=== PATIENT | female | born 1970 | race African-American/Black ===

== ENCOUNTER 2016-04-06 19:16 | Emergency (ER) | payer MEDICAID ==
[~2016-04-06] VITALS: Ht 157.5 cm; Wt 104.3 kg
[2016-04-06 20:48] LABS: Urine Bilirubin Negative (Negative); Urine Blood Negative /uL (Negative); Urine Color Yellow (Yellow); Urine Glucose Normal (Normal); Urine Ketone TRACE (Negative); Urine Mucus FEW (None Seen); Urine Nitrite Negative (Negative); Urine RBC 7 /hpf (0 - 4); Urine Squamous Epithelial Cell MANY /hpf (<5); Urine pH 7.5 (5.0-8.0)
[2016-04-06 20:53] LABS: Basophils # (auto) 0 uL; Basophils % (auto) 0.3 % (0.0-2.0); Eosinophils # (auto) 0.1 uL; Eosinophils % (auto) 0.5 % (0.0-7.0); Hematocrit 42.1 % (36.0-46.0); Lymphocytes # (auto) 2.5 uL; Lymphocytes % (auto) 22.7 % (10.0-50.0); Mean Corpuscular Hemoglobin 30.2 pg (28.0-32.0); Mean Corpuscular Hgb Conc. 33.3 g/dL (32.0-36.0); Mean Corpuscular Volume 90.5 fL (80.0-100.0); Mean Platelet Volume 6.8 fL (7.4-10.4); Monocytes # (auto) 0.5 uL; Monocytes % (auto) 4.9 % (0.0-12.0); Neutrophils # (auto) 7.8 uL; Neutrophils % (auto) 71.6 % (37.0-80.0); Platelet Count (auto) 395 10^3/uL (140-450); White Blood Cell 10.9 10^3/uL (4.4-10.8)
[2016-04-06 21:06] LABS: Albumin 3.9 g/dL (3.4-5.0); BUN/Creatinine Ratio 14.3; Bilirubin, Total 0.3 mg/dL (0.2-1.0); Calcium 9.1 mg/dL (8.5-10.1); Potassium 4.1 mmol/L (3.5-5.1); Total Protein 8.4 g/dL (6.4-8.2)
[2016-04-06] MEDS ORDERED: MORPHINE SULFATE 4 MG/ML SYRG IV ONE (22:45)
[2016-04-06] MEDS ORDERED: ONDANSETRON HCL 4 MG/2 ML VIAL IV ONE (22:45)
[2016-04-06] MEDS ORDERED: cefTRIAXone 1GM/50ML D5W 50 ML IV ONE (22:45)
[2016-04-07 01:24] VITALS: BP 108/97
== END 2016-04-07 01:46 | disposition home or self-care (01) ==
LOC: ER 19:17
DX: L03.116 Cellulitis of left lower limb (principal); J45.909 Unspecified asthma, uncomplicated; F17.210 Nicotine dependence, cigarettes, uncomplicated; F12.10 Cannabis abuse, uncomplicated; E11.69 Type 2 diabetes mellitus with other specified complication; M86.9 Osteomyelitis, unspecified; Z88.1 Allergy status to other antibiotic agents
CPT/HCPCS: 36415; 73700; 80053; 81001; 82962; 84702; 85025; 96365; 96375; 99285; J0696; J2270; J2405

== ENCOUNTER 2016-04-19 22:25 | Emergency (ER) | payer MEDICAID ==
[~2016-04-19] VITALS: Ht 157.5 cm; Wt 99.8 kg
[2016-04-19 22:48] VITALS: BP 155/84
[2016-04-19 23:31] LABS: Basophils # (auto) 0 uL; Basophils % (auto) 0.4 % (0.0-2.0); Eosinophils # (auto) 0.1 uL; Eosinophils % (auto) 2.5 % (0.0-7.0); Hematocrit 35.8 % (36.0-46.0); Lymphocytes # (auto) 1.8 uL; Lymphocytes % (auto) 31.5 % (10.0-50.0); Mean Corpuscular Hgb Conc. 33.7 g/dL (32.0-36.0); Mean Corpuscular Volume 89.2 fL (80.0-100.0); Mean Platelet Volume 6.4 fL (7.4-10.4); Monocytes # (auto) 0.5 uL; Monocytes % (auto) 9.4 % (0.0-12.0); Neutrophils # (auto) 3.2 uL; Neutrophils % (auto) 56.2 % (37.0-80.0); Platelet Count (auto) 466 10^3/uL (140-450); Red Cell Distribution Width 15.9 % (11.6-16.0); White Blood Cell 5.8 10^3/uL (4.4-10.8)
[2016-04-19 23:54] LABS: Albumin 3.7 g/dL (3.4-5.0); BUN/Creatinine Ratio 10.4; Calcium 8.9 mg/dL (8.5-10.1); Potassium 3.5 mmol/L (3.5-5.1)
[2016-04-19 23:57] LABS: Bilirubin, Total 0.3 mg/dL (0.2-1.0); Total Protein 7.6 g/dL (6.4-8.2)
== END 2016-04-20 04:37 | disposition left against medical advice (07) ==
LOC: ER 22:28
DX: L97.519 Non-pressure chronic ulcer of other part of right foot with unspecified severity (principal); Z53.21 Procedure and treatment not carried out due to patient leaving prior to being seen by health care provider
CPT/HCPCS: 36415; 80053; 85025

== ENCOUNTER 2017-05-18 19:11 | Emergency (ER) | payer MEDICAID ==
[~2017-05-18] VITALS: Ht 160 cm; Wt 91.6 kg
[2017-05-18 20:00] LABS: Urine Bacteria MOD /hpf (None Seen); Urine Blood Negative /uL (Negative); Urine Specific Gravity 1.011 (1.001-1.035); Urine WBC 5 /hpf (0 - 5)
[2017-05-19] MEDS: TRIAMCINOLONE 40MG/ML 1ML VIAL IX ONE (05:15)
[2017-05-19 05:30] VITALS: BP 125/82
[2017-05-19] MEDS: LIDOCAINE 1% (LOCAL ANESTH.) PF 5ml SDV IJ ONE (05:45)
== END 2017-05-19 06:00 | disposition home or self-care (01) ==
LOC: ER 19:11
DX: M77.31 Calcaneal spur, right foot (principal); M79.671 Pain in right foot; J45.909 Unspecified asthma, uncomplicated; E11.9 Type 2 diabetes mellitus without complications; F17.210 Nicotine dependence, cigarettes, uncomplicated; E66.9 Obesity, unspecified; Z68.35 Body mass index [BMI] 35.0-35.9, adult; Z88.1 Allergy status to other antibiotic agents; Z88.8 Allergy status to other drugs, medicaments and biological substances
CPT/HCPCS: 73610; 73630; 81001; 81025; 82962

== ENCOUNTER 2017-12-25 12:53 | Emergency (ER) | payer MEDICAID ==
[~2017-12-25] VITALS: Ht 157.5 cm; Wt 90.7 kg
[2017-12-25 14:01] VITALS: BP 137/82
[2017-12-25] MEDS ORDERED: IBUPROFEN 800 MG TAB PO ONE (15:15)
== END 2017-12-25 17:58 | disposition home or self-care (01) ==
LOC: ER 12:53
DX: S50.11XA Contusion of right forearm, initial encounter (principal); S60.211A Contusion of right wrist, initial encounter; F17.210 Nicotine dependence, cigarettes, uncomplicated; F12.90 Cannabis use, unspecified, uncomplicated; Z88.0 Allergy status to penicillin; Z88.2 Allergy status to sulfonamides; Y09 Assault by unspecified means; Y93.89 Activity, other specified; Y99.8 Other external cause status; Y92.810 Car as the place of occurrence of the external cause
CPT/HCPCS: 73090; 73110; 73130

== ENCOUNTER 2019-04-20 21:23 | Inpatient (IN) | payer MEDICARE, MEDICAID ==
[~2019-04-20] VITALS: Ht 160 cm; Wt 107.9 kg
[2019-04-20] MEDS ORDERED: ALBUTEROL SULF 2.5 MG/0.5ML(0.5%) NEB SOLN NEB ONE (21:45)
[2019-04-20] MEDS ORDERED: IPRATROPIUM BROM 0.5 MG/2.5ML INH SOL NEB ONE (21:45)
[2019-04-20 22:09] LABS: Basophils # (auto) 0.1 10 ^3/uL (0-0.2); Basophils % (auto) 0.6 % (0.0-2.0); Eosinophils # (auto) 0.3 10 ^3/uL (0-0.8); Eosinophils % (auto) 2.6 % (0.0-7.0); Hematocrit 39.6 % (36.0-46.0); Hemoglobin 13.5 g/dL (12.2-16.2); Lymphocytes % (auto) 27.7 % (10.0-50.0); Mean Corpuscular Hemoglobin 30.7 pg (28.0-32.0); Mean Corpuscular Hgb Conc. 34.2 g/dL (32.0-36.0); Mean Corpuscular Volume 89.8 fL (80.0-100.0); Monocytes # (auto) 0.5 10 ^3/uL (0-1.3); Neutrophils # (auto) 6.9 10 ^3/uL (1.6-8.6); Neutrophils % (auto) 64.1 % (37.0-80.0); Nucleated Red Blood Cells % 0.1 %; Platelet Count (auto) 385 10^3/uL (140-450); Red Blood Cells 4.41 10^6/uL (4.0-5.20); Red Cell Distribution Width 14.5 % (11.8-14.3); White Blood Cell 10.7 10^3/uL (4.4-10.8)
[2019-04-20 22:30] LABS: Alanine Aminotransferase 22 U/L (13-56); Albumin 3.9 g/dL (3.4-5.0); Anion Gap 4 (5-15); Aspartate Aminotransferase 14 U/L (15-37); BUN/Creatinine Ratio 16.5; Blood Urea Nitrogen 14 mg/dL (7-18); Calcium 8.5 mg/dL (8.5-10.1); Carbon Dioxide 27 mmol/L (21-32); Chloride 107 mmol/L (98-107); GFR African American 92 mL/min; GFR Non-African American 76 mL/min; Glucose 98 mg/dL (74-106); Magnesium 2.1 mg/dL (1.6-2.6); Potassium 3.4 mmol/L (3.5-5.1); Sodium 138 mmol/L (136-145)
[2019-04-20 22:33] LABS: INR 1.06 (0.9-1.15); Partial Thromboplastin Time 29.1 sec (23.64-32.05)
[2019-04-20 22:35] LABS: Alkaline Phosphatase 87 U/L (45-117); Bilirubin, Total 0.2 mg/dL (0.2-1.0); Total Protein 8.1 g/dL (6.4-8.2)
[2019-04-20] MEDS ORDERED: methylPREDNISolone SOD SUCC 125 MG/2 ML VL IM ONE (23:00)
[2019-04-21] MEDS ORDERED: IPRATROPIUM BROM 0.5 MG/2.5ML INH SOL NEB ONE (03:30)
[2019-04-21] MEDS ORDERED: ALBUTEROL SULF 2.5 MG/0.5ML(0.5%) NEB SOLN NEB ONE (03:30)
[2019-04-21] MEDS ORDERED: MORPHINE SULFATE 4 MG/ML SYR/VIAL IV ONE (08:30)
[2019-04-21] MEDS ORDERED: ONDANSETRON HCL 4 MG/2 ML VIAL IV ONE (08:30)
[2019-04-21] MEDS ORDERED: NITROGLYCERIN 0.4 MG SL TAB SL PRN (09:15)
[2019-04-21] MEDS ORDERED: ACETAMINOPHEN 500 MG TAB PO PRN (09:15)
[2019-04-21] MEDS ORDERED: MORPHINE SULF INJ 2 MG/ML SYRINGE 1ML IV PRN (09:15)
[2019-04-21] MEDS ORDERED: DEXTROSE (50%) 50ML SYRG IV PRN (09:15)
[2019-04-21] MEDS ORDERED: HYDROcodone-ACET 5/325MG TAB PO PRN (09:15)
[2019-04-21] MEDS ORDERED: POTASSIUM EFFERVESENT TAB 25 MEQ PO ONE (09:30)
[2019-04-21] MEDS ORDERED: methylPREDNISolone SOD SUCC 40 MG/ML VL IV SCH (10:00)
[2019-04-21] MEDS: methylPREDNISolone SOD SUCC 40 MG/ML VL IV SCH ×2 (10:01→21:40)
[2019-04-21] MEDS: FAMOTIDINE 20 MG TAB PO SCH (10:01)
[2019-04-21 11:06] VITALS: BP 109/52
[2019-04-21] MEDS ORDERED: ONDA-144 PO (11:18)
[2019-04-21] MEDS ORDERED: INSLANTI SC (11:18)
[2019-04-21] MEDS ORDERED: TIZA4CAP13 PO (11:18)
[2019-04-21] MEDS ORDERED: SENN8.6C PO (11:18)
[2019-04-21] MEDS ORDERED: ALBUAER3 IN (11:18)
[2019-04-21] MEDS ORDERED: FURO1TAB33 PO (11:18)
[2019-04-21] MEDS ORDERED: PERCOT PO (11:18)
[2019-04-21] MEDS: ACCU-CHEK COMFORT CURVE STRIP VI SCH ×3 (11:25→21:40)
[2019-04-21] MEDS: InsuLIN REG 1unit/0.01ml Soln (100units/ml) SC SCH ×3 (11:31→21:40)
[2019-04-21] MEDS: IPRATROPIUM BROM 0.5 MG/2.5ML INH SOL NEB SCH ×2 (12:29→18:59)
[2019-04-21] MEDS: BUDESONIDE (INHALATION) 0.5 MG/2 ML NEB NEB SCH ×2 (12:29→18:59)
[2019-04-21] MEDS: ALBUTEROL SULF 2.5 MG/0.5ML(0.5%) NEB SOLN NEB SCH ×2 (12:30→18:59)
[2019-04-21 13:00] VITALS: BP 120/83
[2019-04-21] MEDS: ONDANSETRON HCL 4 MG/2 ML VIAL IV PRN ×2 (16:14→21:42)
[2019-04-21] MEDS: MORPHINE SULF INJ 2 MG/ML SYRINGE 1ML IV PRN ×2 (16:14→21:42)
[2019-04-21 16:49] VITALS: BP 125/73
[2019-04-21 22:35] VITALS: BP 111/57
[2019-04-22 02:57] VITALS: BP 111/57
[2019-04-22] MEDS: ONDANSETRON HCL 4 MG/2 ML VIAL IV PRN ×3 (05:28→18:15)
[2019-04-22] MEDS: MORPHINE SULF INJ 2 MG/ML SYRINGE 1ML IV PRN ×3 (05:28→18:15)
[2019-04-22 05:39] VITALS: BP 101/70
[2019-04-22] MEDS: ALBUTEROL SULF 2.5 MG/0.5ML(0.5%) NEB SOLN NEB SCH ×3 (05:54→18:12)
[2019-04-22] MEDS: IPRATROPIUM BROM 0.5 MG/2.5ML INH SOL NEB SCH ×3 (05:54→18:12)
[2019-04-22] MEDS: BUDESONIDE (INHALATION) 0.5 MG/2 ML NEB NEB SCH ×2 (05:54→18:12)
[2019-04-22] MEDS: ACCU-CHEK COMFORT CURVE STRIP VI SCH ×4 (06:43→21:34)
[2019-04-22] MEDS: InsuLIN REG 1unit/0.01ml Soln (100units/ml) SC SCH ×4 (06:44→21:35)
[2019-04-22 09:00] VITALS: BP 113/76
[2019-04-22] MEDS: methylPREDNISolone SOD SUCC 40 MG/ML VL IV SCH ×2 (09:32→21:34)
[2019-04-22] MEDS: FAMOTIDINE 20 MG TAB PO SCH (09:32)
[2019-04-22 13:00] VITALS: BP 116/70
[2019-04-22] MEDS ORDERED: levoFLOXacin 250 MG TAB PO ONE (13:30)
[2019-04-22 17:00] VITALS: BP 142/67
[2019-04-22 21:52] VITALS: BP 112/70
[2019-04-22] MEDS ORDERED: SENNA 8.6 MG TAB PO SCH (22:00)
[2019-04-23] MEDS: MORPHINE SULF INJ 2 MG/ML SYRINGE 1ML IV PRN ×2 (01:17→09:35)
[2019-04-23] MEDS: ONDANSETRON HCL 4 MG/2 ML VIAL IV PRN ×2 (01:17→09:35)
[2019-04-23 02:00] VITALS: BP 120/59
[2019-04-23 04:32] VITALS: BP 121/74
[2019-04-23] MEDS: ACCU-CHEK COMFORT CURVE STRIP VI SCH (06:38)
[2019-04-23] MEDS: InsuLIN REG 1unit/0.01ml Soln (100units/ml) SC SCH (06:38)
[2019-04-23 08:57] VITALS: BP 121/74
[2019-04-23 09:00] VITALS: BP 148/72
[2019-04-23] MEDS: methylPREDNISolone SOD SUCC 40 MG/ML VL IV SCH (09:27)
[2019-04-23] MEDS: FAMOTIDINE 20 MG TAB PO SCH (09:28)
[2019-04-23] MEDS ORDERED: levoFLOXacin 250 MG TAB PO SCH (10:00)
== END 2019-04-23 10:10 | disposition home or self-care (01) | DRG 189 ==
LOC: ER 21:27 → OVERFLOW 21:28 → CENTRAL 04-21 10:37
PROVIDERS: ADMIT Nurse Practitioner Acute Care; ATTEND Family Medicine
DX: J96.20 Acute and chronic respiratory failure, unspecified whether with hypoxia or hypercapnia (principal); J44.1 Chronic obstructive pulmonary disease with (acute) exacerbation; J45.902 Unspecified asthma with status asthmaticus; Z68.41 Body mass index [BMI] 40.0-44.9, adult; J44.0 Chronic obstructive pulmonary disease with (acute) lower respiratory infection; J20.9 Acute bronchitis, unspecified; G89.29 Other chronic pain; E11.9 Type 2 diabetes mellitus without complications; E66.01 Morbid (severe) obesity due to excess calories; F17.210 Nicotine dependence, cigarettes, uncomplicated; Z79.4 Long term (current) use of insulin; Z99.81 Dependence on supplemental oxygen; Z88.2 Allergy status to sulfonamides
CPT/HCPCS: 36415; 71046; 71250; 80053; 82962; 83036; 83735; 83880; 84484; 85025; 85610; 85730; 87804; 93005; 94640; 96372; 96374; 96375; G0378; J1815; J2405

== ENCOUNTER 2019-05-07 22:33 | Emergency (ER) | payer MEDICARE, MEDICAID ==
[~2019-05-07] VITALS: Ht 160 cm; Wt 95.3 kg
[~2019-05-07 22:33] MED LIST: ALBUAER3 IN; FURO1TAB33 PO; INSLANTI SC; ONDA-144 PO; PERCOT PO; SENN8.6C PO; TIZA4CAP13 PO
[2019-05-07 22:49] VITALS: BP 95/65
[2019-05-08] MEDS ORDERED: HYDROcodone-ACET 5/325MG TAB PO ONE (01:50)
== END 2019-05-08 02:28 | disposition home or self-care (01) ==
LOC: ER 22:34
DX: S52.202A Unspecified fracture of shaft of left ulna, initial encounter for closed fracture (principal); J45.909 Unspecified asthma, uncomplicated; E11.9 Type 2 diabetes mellitus without complications; Z88.1 Allergy status to other antibiotic agents; X58.XXXA Exposure to other specified factors, initial encounter; Y93.89 Activity, other specified; Y92.89 Other specified places as the place of occurrence of the external cause; Y99.8 Other external cause status
CPT/HCPCS: 73090

== ENCOUNTER 2019-05-09 10:43 | Emergency (ER) | payer MEDICARE, MEDICAID ==
[~2019-05-09] VITALS: Ht 160 cm; Wt 99.8 kg
[2019-05-09 10:59] VITALS: BP 147/81
== END 2019-05-09 12:08 | disposition home or self-care (01) ==
LOC: ER 10:43
DX: S52.202D Unspecified fracture of shaft of left ulna, subsequent encounter for closed fracture with routine healing (principal); E11.9 Type 2 diabetes mellitus without complications; J45.909 Unspecified asthma, uncomplicated; Z88.1 Allergy status to other antibiotic agents; X58.XXXD Exposure to other specified factors, subsequent encounter

== ENCOUNTER 2019-05-14 11:48 | Emergency (ER) | payer MEDICARE, MEDICAID ==
[~2019-05-14] VITALS: Ht 160 cm; Wt 95.3 kg
[2019-05-14] MEDS ORDERED: KETOROLAC TROMETH 30 MG/ML 1ML VIAL ONE (12:38)
[2019-05-14] MEDS ORDERED: KETOROLAC TROMETH 15 mg/ml 1ML VL IV ONE (12:45)
[2019-05-14] MEDS ORDERED: ONDANSETRON HCL 4 MG/2 ML VIAL IV ONE (12:45)
[2019-05-14 12:55] LABS: Basophils # (auto) 0 10 ^3/uL (0-0.2); Basophils % (auto) 0.4 % (0.0-2.0); Eosinophils # (auto) 0.3 10 ^3/uL (0-0.8); Eosinophils % (auto) 3.6 % (0.0-7.0); Hematocrit 35.2 % (36.0-46.0); Lymphocytes # (auto) 2.2 10 ^3/uL (0.4-5.4); Lymphocytes % (auto) 31.2 % (10.0-50.0); Mean Corpuscular Hemoglobin 30.8 pg (28.0-32.0); Mean Corpuscular Hgb Conc. 34.1 g/dL (32.0-36.0); Mean Corpuscular Volume 90.3 fL (80.0-100.0); Monocytes # (auto) 0.4 10 ^3/uL (0-1.3); Monocytes % (auto) 5.4 % (0.0-12.0); Neutrophils # (auto) 4.2 10 ^3/uL (1.6-8.6); Neutrophils % (auto) 59.4 % (37.0-80.0); Nucleated Red Blood Cells % 0.2 %; Platelet Count (auto) 381 10^3/uL (140-450); Red Cell Distribution Width 14.7 % (11.8-14.3); White Blood Cell 7.1 10^3/uL (4.4-10.8)
[2019-05-14 13:10] LABS: Potassium 3.7 mmol/L (3.5-5.1)
[2019-05-14] MEDS ORDERED: PANTOPRAZOLE 40 MG/10 ML VIAL INJ IV ONE (13:15)
[2019-05-14 13:16] LABS: Albumin 3.1 g/dL (3.4-5.0); BUN/Creatinine Ratio 14.1; Bilirubin, Total 0.3 mg/dL (0.2-1.0); Calcium 8.4 mg/dL (8.5-10.1); Total Protein 6.9 g/dL (6.4-8.2)
[2019-05-14 13:44] VITALS: BP 130/86
== END 2019-05-14 13:49 | disposition home or self-care (01) ==
LOC: ER 11:48
DX: K44.9 Diaphragmatic hernia without obstruction or gangrene (principal); R10.13 Epigastric pain; R11.2 Nausea with vomiting, unspecified; K59.00 Constipation, unspecified; E44.1 Mild protein-calorie malnutrition; J45.909 Unspecified asthma, uncomplicated; E11.9 Type 2 diabetes mellitus without complications
CPT/HCPCS: 36415; 74176; 80053; 83690; 85025; 96374; 96375; 99284; C9113; J1885; J2405

== ENCOUNTER 2019-07-28 16:52 | Inpatient (IN) | payer MEDICARE, MEDICAID ==
[~2019-07-28] VITALS: Ht 160 cm; Wt 106.0 kg
[2019-07-28 17:56] LABS: Basophils # (auto) 0.1 10 ^3/uL (0-0.2); Basophils % (auto) 0.6 % (0.0-2.0); Eosinophils # (auto) 0.3 10 ^3/uL (0-0.8); Eosinophils % (auto) 2.5 % (0.0-7.0); Hematocrit 39.4 % (36.0-46.0); Hemoglobin 13.2 g/dL (12.2-16.2); Lymphocytes # (auto) 2.7 10 ^3/uL (0.4-5.4); Lymphocytes % (auto) 25.6 % (10.0-50.0); Mean Corpuscular Hemoglobin 30.2 pg (28.0-32.0); Mean Corpuscular Hgb Conc. 33.6 g/dL (32.0-36.0); Mean Corpuscular Volume 89.9 fL (80.0-100.0); Monocytes # (auto) 0.4 10 ^3/uL (0-1.3); Monocytes % (auto) 3.8 % (0.0-12.0); Neutrophils % (auto) 67.5 % (37.0-80.0); Nucleated Red Blood Cells % 0.2 %; Platelet Count (auto) 393 10^3/uL (140-450); Red Blood Cells 4.39 10^6/uL (4.0-5.20); Red Cell Distribution Width 14.2 % (11.8-14.3); White Blood Cell 10.4 10^3/uL (4.4-10.8)
[2019-07-28 18:10] LABS: INR 1.13 (0.9-1.15); Partial Thromboplastin Time 29.9 sec (23.64-32.05)
[2019-07-28 18:13] LABS: Albumin 3.7 g/dL (3.4-5.0); BUN/Creatinine Ratio 13.5; Calcium 8.4 mg/dL (8.5-10.1); Potassium 3.6 mmol/L (3.5-5.1)
[2019-07-28 18:19] LABS: Bilirubin, Total 0.3 mg/dL (0.2-1.0); Total Protein 7.8 g/dL (6.4-8.2)
[2019-07-28] MEDS ORDERED: ONDANSETRON HCL 4 MG/2 ML VIAL IV PRN (21:15)
[2019-07-28] MEDS ORDERED: PANTOPRAZOLE 40 MG/10 ML VIAL INJ IV ONE (21:15)
[2019-07-28] MEDS ORDERED: ACETAMINOPHEN 325 MG TAB PO PRN (21:15)
[2019-07-28] MEDS: SODIUM CHLORIDE 0.9% 1,000 ML IV SCH (21:49)
[2019-07-28] MEDS ORDERED: TEMAZEPAM 15 MG CAP PO PRN (22:00)
[2019-07-28 22:40] VITALS: BP 141/86
[2019-07-28] MEDS ORDERED: POLYETHYLENE GLYCOL 17 GM PWDR PO ONE (23:00)
--- NOTE | 2019-07-28 23:30 | NUR ---
Patient asking for a breathing treatment RT paged to unit
[2019-07-28] MEDS: ALBUTEROL SULF 2.5 MG/0.5ML(0.5%) NEB SOLN NEB PRN (23:33)
[2019-07-29] VITALS (7 sets, daily range): BP systolic 101–141; BP diastolic 68–86
--- NOTE | 2019-07-29 | NUR ---
MS admit from ER DAY,HUSSEIN admitted to [facility]. Patient oriented to ALFONSO OLIVER RN, room 206. Patient weighed by bedscale and encouraged to call if they need something. All questions and concerns addressed, patient verbalized understanding. Bed locked, in lowest position, call light within reach, side rails up x2. Will continue to monitor
[2019-07-29] MEDS: HYDROcodone-ACET 5/325MG TAB PO PRN ×2 (01:55→09:43)
[2019-07-29] MEDS ORDERED: SODIUM CHLORIDE 0.9 % NEB SOLN 3ML NEB ONE ×2 (05:56→10:40)
--- NOTE | 2019-07-29 07:38 | NUR ---
Assumed care of patient from noc shift rn. patient awake, alert and oriented x4. Denies SOB, no s/s distress, pain denied at this time. Plan of care discussed. Bed in lowest and locked position. Encouraged to call for assistance prn.Will continue to monitor q1 and prn.
[2019-07-29] MEDS: FUROSEMIDE 40 MG TAB PO SCH (09:46)
[2019-07-29 09:48] LABS: Basophils # (auto) 0 10 ^3/uL (0-0.2); Basophils % (auto) 0.3 % (0.0-2.0); Eosinophils # (auto) 0.2 10 ^3/uL (0-0.8); Eosinophils % (auto) 2.9 % (0.0-7.0); Hematocrit 39.4 % (36.0-46.0); Hemoglobin 12.9 g/dL (12.2-16.2); Lymphocytes # (auto) 2.2 10 ^3/uL (0.4-5.4); Lymphocytes % (auto) 30.6 % (10.0-50.0); Mean Corpuscular Hemoglobin 29.7 pg (28.0-32.0); Mean Corpuscular Hgb Conc. 32.7 g/dL (32.0-36.0); Mean Corpuscular Volume 90.9 fL (80.0-100.0); Monocytes # (auto) 0.4 10 ^3/uL (0-1.3); Monocytes % (auto) 5.1 % (0.0-12.0); Neutrophils # (auto) 4.4 10 ^3/uL (1.6-8.6); Neutrophils % (auto) 61.1 % (37.0-80.0); Nucleated Red Blood Cells % 0.1 %; Platelet Count (auto) 380 10^3/uL (140-450); Red Blood Cells 4.34 10^6/uL (4.0-5.20); Red Cell Distribution Width 14.6 % (11.8-14.3); White Blood Cell 7.2 10^3/uL (4.4-10.8)
[2019-07-29] MEDS ORDERED: PANTOPRAZOLE 40 MG/10 ML VIAL INJ IV SCH (10:00)
[2019-07-29] MEDS: SODIUM CHLORIDE 0.9% 1,000 ML IV SCH (10:35)
[2019-07-29] MEDS: ALBUTEROL SULF 2.5 MG/0.5ML(0.5%) NEB SOLN NEB PRN ×3 (12:00→23:34)
[2019-07-29] MEDS ORDERED: LIDOCAINE VISCOUS 2% 15ML UD ONE (12:16)
[2019-07-29] MEDS ORDERED: SODIUM CHLORIDE LOCK 10 ML ONE (12:16)
[2019-07-29] MEDS: diphenhdrAMINE HCL 50 MG/1 ML VL ONE ×2 (15:08→15:12)
[2019-07-29] MEDS: fentaNYL CITRATE 100 MCG/2 ML VL ONE ×2 (15:08→15:10)
[2019-07-29] MEDS: MIDAZOLAM HCL 5 MG/ML-1ML VIAL ONE ×3 (15:08→15:13)
--- NOTE | 2019-07-29 16:09 | NUR ---
ss consult Per consult advanced directive. Patient has been provided with advanced directive by ELIO Colbert. Addendum: 07/29/19 at 1610 by Deysi GARCIA Amended: Links added.
[2019-07-29] MEDS ORDERED: INSU1INJ19 SC (16:50)
[2019-07-29] MEDS ORDERED: FURO40TA4 PO (16:50)
[2019-07-29] MEDS ORDERED: ONDA-180 PO (16:51)
[2019-07-29] MEDS ORDERED: PANT40TA2 PO (16:53)
[2019-07-29] MEDS ORDERED: AMIT10TA6 PO (16:53)
[2019-07-29] MEDS ORDERED: MELO1TAB56 PO (16:53)
[2019-07-29] MEDS ORDERED: IPRA0.00 NEB (16:53)
[2019-07-29] MEDS ORDERED: POTA10TA79 PO (16:53)
[2019-07-29] MEDS ORDERED: HYDR4TAB2 PO (16:53)
[2019-07-29] MEDS ORDERED: DEXTROSE (50%) 50ML SYRG IV PRN (17:45)
--- NOTE | 2019-07-29 20:00 | NUR ---
Opening Shift Note Assumed care of patient. Awake, alert and oriented x4. No S/S of distress or pain. Patient is resting comfortably with nasal cannula on at 2L. Instructed on POC and to call for assist PRN. Call light within reach, bed locked, in lowest position, side rails up x2. Will continue to monitor for changes Q1hr and PRN.
[2019-07-29] MEDS: InsuLIN REG 1unit/0.01ml Soln (100units/ml) SC SCH (22:00)
--- NOTE | 2019-07-29 23:20 | NUR ---
Pt requesting breathing treatment Paged RT
[2019-07-29] MEDS: ACCU-CHEK COMFORT CURVE STRIP VI SCH (23:33)
--- NOTE | 2019-07-30 | NUR ---
Paged Hospitalist Patient saying the breathing treatments she's getting aren't what she takes at home and she isn't getting sufficient relief. Awaiting for a reply.
--- NOTE | 2019-07-30 00:46 | NUR ---
Received call from Hospitalist New orders received. Will continue with care
[2019-07-30] MEDS: SODIUM CHLORIDE 0.9% 1,000 ML IV SCH ×2 (04:29→13:57)
[2019-07-30 05:56] VITALS: BP 114/68
[2019-07-30] MEDS: ALBUTEROL SULF 2.5 MG/0.5ML(0.5%) NEB SOLN NEB PRN ×2 (06:23→22:59)
[2019-07-30] MEDS: IPRATROPIUM BROM 0.5 MG/2.5ML INH SOL NEB PRN ×2 (06:23→22:59)
[2019-07-30] MEDS: ACCU-CHEK COMFORT CURVE STRIP VI SCH ×4 (06:34→22:05)
[2019-07-30] MEDS: InsuLIN REG 1unit/0.01ml Soln (100units/ml) SC SCH ×4 (06:35→22:00)
[2019-07-30 09:00] VITALS: BP 123/67
--- NOTE | 2019-07-30 09:15 | NUR ---
OPENING SHIFT NOTE: PATIENT RESTING IN BED, A/OX4. MD Tenzin FIORE AT BEDSIDE. UPDATED ON PLAN OF CARE. PATIENT TOLERATING CLEAR LIQUID DIET. PLAN FOR BOWEL PREP TODAY, ADDRESSED CONCERNS. PATIENT GIVEN CALL LIGHT AND FALL PRECAUTIONS IN PLACE. WILL CONTINUE TO MONITOR.
[2019-07-30] MEDS ORDERED: GOLYTELY 4L KIT PO ONE (10:00)
[2019-07-30] MEDS: PANTOPRAZOLE 40 MG/10 ML VIAL INJ IV SCH ×3 (10:51→21:57)
[2019-07-30] MEDS: FUROSEMIDE 40 MG TAB PO SCH (10:51)
[2019-07-30] MEDS: SUCRALFATE 1 GM TAB PO SCH ×3 (10:52→21:57)
--- NOTE | 2019-07-30 11:24 | NUR ---
BOWEL PREP: PATIENT ON CLEAR LIQUID, GOLYTELY INSTRUCTIONS GIVEN. COMMODE AT BEDSIDE. WILL CONTINUE TO MONITOR.
[2019-07-30] MEDS ORDERED: KETOROLAC TROMETH 30 MG/ML 1ML VIAL IV PRN (11:30)
[2019-07-30 12:30] VITALS: BP 133/86
[2019-07-30] MEDS ORDERED: HYDROcodone-ACET 5/325MG TAB PO PRN (13:15)
[2019-07-30 17:00] VITALS: BP 131/85
--- NOTE | 2019-07-30 17:39 | NUR ---
PT ASSESSED FOR PRN MED NEB TX. SPO2 97% ON 3L NC, HR 93. PT DENIES ANY RESPIRATORY DISTRESS AT THIS TIME. NO TX INDICATED. PT IS AWARE TO HAVE RT PAGED IF TX NEEDED.
[2019-07-30 18:47] LABS: Calcium 8.3 mg/dL (8.5-10.1); Potassium 3.6 mmol/L (3.5-5.1)
--- NOTE | 2019-07-30 19:00 | NUR ---
CARE ENDORSED TO CAN BALLARD.
[2019-07-30 22:00] VITALS: BP 134/89
[2019-07-31] MEDS: SODIUM CHLORIDE 0.9% 1,000 ML IV SCH ×2 (02:35→16:50)
[2019-07-31] MEDS: IPRATROPIUM BROM 0.5 MG/2.5ML INH SOL NEB PRN ×3 (05:59→13:45)
[2019-07-31] MEDS: ALBUTEROL SULF 2.5 MG/0.5ML(0.5%) NEB SOLN NEB PRN (05:59)
[2019-07-31] MEDS: InsuLIN REG 1unit/0.01ml Soln (100units/ml) SC SCH ×3 (07:00→17:00)
[2019-07-31] MEDS: ACCU-CHEK COMFORT CURVE STRIP VI SCH ×3 (07:11→17:00)
[2019-07-31 07:19] LABS: Urine Bacteria NONE SEEN /hpf (None Seen); Urine Blood 3+ /uL (Negative); Urine Mucus FEW (None Seen); Urine Specific Gravity 1.016 (1.001-1.035)
[2019-07-31 07:24] LABS: Urine WBC 1 /hpf (0 - 5)
--- NOTE | 2019-07-31 07:30 | NUR ---
End of Shift Note Care endorsed to dayshift nurse. At this time patient has no s/s of distress or SOB, no complaints, responsive to voice and touch.
[2019-07-31] MEDS: SUCRALFATE 1 GM TAB PO SCH ×3 (07:37→17:00)
[2019-07-31 08:57] VITALS: BP 105/49
[2019-07-31] MEDS ORDERED: GOLYTELY 4L KIT PO ONE (09:00)
[2019-07-31] MEDS: FUROSEMIDE 40 MG TAB PO SCH (09:00)
--- NOTE | 2019-07-31 09:01 | NUR ---
OPENING SHIFT NOTE: PATIENT RESTING IN BED, A/OX4. UPDATED ON PLAN OF CARE. PATIENT TOLERATING CLEAR LIQUID DIET. PATIENT GIVEN CALL LIGHT AND FALL PRECAUTIONS IN PLACE. WILL CONTINUE TO MONITOR.
[2019-07-31 09:10] LABS: Basophils # (auto) 0 10 ^3/uL (0-0.2); Basophils % (auto) 0.6 % (0.0-2.0); Eosinophils # (auto) 0.2 10 ^3/uL (0-0.8); Eosinophils % (auto) 2.7 % (0.0-7.0); Hematocrit 36.3 % (36.0-46.0); Hemoglobin 12.3 g/dL (12.2-16.2); Lymphocytes % (auto) 30.7 % (10.0-50.0); Mean Corpuscular Hemoglobin 30.4 pg (28.0-32.0); Mean Corpuscular Hgb Conc. 33.8 g/dL (32.0-36.0); Mean Corpuscular Volume 89.9 fL (80.0-100.0); Monocytes # (auto) 0.3 10 ^3/uL (0-1.3); Monocytes % (auto) 5.2 % (0.0-12.0); Neutrophils # (auto) 3.9 10 ^3/uL (1.6-8.6); Neutrophils % (auto) 60.8 % (37.0-80.0); Nucleated Red Blood Cells % 0.1 %; Platelet Count (auto) 371 10^3/uL (140-450); Red Blood Cells 4.04 10^6/uL (4.0-5.20); Red Cell Distribution Width 14.3 % (11.8-14.3); White Blood Cell 6.5 10^3/uL (4.4-10.8)
[2019-07-31 09:26] LABS: INR 1.15 (0.9-1.15); Partial Thromboplastin Time 28.6 sec (23.64-32.05)
[2019-07-31 09:30] LABS: BUN/Creatinine Ratio 7.5; Calcium 7.6 mg/dL (8.5-10.1); Potassium 3.6 mmol/L (3.5-5.1)
[2019-07-31] MEDS: ALBUTEROL SULF 2.5 MG/0.5ML(0.5%) NEB SOLN NEB SCH ×2 (09:55→13:45)
--- NOTE | 2019-07-31 10:28 | NUR ---
IV: IV TO LEFT HAND DISCONTINUED. NEW IV IN THE RIGHT HAND 22G.
[2019-07-31] MEDS: PANTOPRAZOLE 40 MG/10 ML VIAL INJ IV SCH (10:29)
[2019-07-31] MEDS ORDERED: SODIUM CHLORIDE LOCK 10 ML ONE (10:30)
--- NOTE | 2019-07-31 11:13 | NUR ---
PATIENT TAKEN DOWN TO PRE-OP.
[2019-07-31] MEDS: diphenhdrAMINE HCL 50 MG/1 ML VL ONE ×2 (12:27→12:32)
[2019-07-31] MEDS: MIDAZOLAM HCL 5 MG/ML-1ML VIAL ONE ×3 (12:27→12:32)
[2019-07-31] MEDS: fentaNYL CITRATE 100 MCG/2 ML VL ONE ×2 (12:27→12:30)
--- NOTE | 2019-07-31 13:13 | NUR ---
Nutrition Assessment Notes Please refer to link for full assessment notes. Est Energy needs: 8971-1320 kcals (12-15 kcal/kgBW) Est Protein needs: 105-131 gms/day (2.0-2.5 gm/kgIBW) d/t pt adiposity Will continue to monitor and reassess prn. Addendum: 07/31/19 at [address] Amended: Links added.
[2019-07-31 13:30] VITALS: BP 122/72
--- NOTE | 2019-07-31 13:30 | NUR ---
PATIENT BACK IN ROOM. ABLE TO EAT AND DRINK. VS OBTAINED WNL.
[2019-07-31 13:57] VITALS: BP 137/89
--- NOTE | 2019-07-31 15:52 | NUR ---
DC UPDATE: PATIENT A/OX4, VERY SLEEPY. RESPIRATIONS EVEN AND UNLABORED, PATIENT DROVE SELF TO ER ON ADMISSION, AND IS TO GO HOME BY DRIVING SELF. WILL RE-ASSESS PATIENT BEHAVIOR AFTER DINNER FOR VERIFICATION FOR SAFE DISCHARGE.
[2019-07-31 16:36] VITALS: BP 119/72
--- NOTE | 2019-07-31 16:53 | NUR ---
MARTHA KNIGHT TO WASTE HANDLING TECHNICIAN PATIENT.
--- NOTE | 2019-07-31 17:52 | NUR ---
DISCHARGE: PATIENT DISCHARGED. ALL EDUCATION MATERIALS GIVEN TO PATIENT. PATIENT VERBALIZED UNDERSTANDING. IV REMOVED, MANUAL PRESSURE APPLIED. PATIENT TAKEN DOWN TO PRIVATE AUTO WITH ALL BELONGINGS. PATIENT AMBULATED INTO AUTO WITHOUT INCIDENCE.
== END 2019-07-31 18:00 | disposition home or self-care (01) | DRG 381 ==
LOC: ER 16:52 → OVERFLOW 16:53 → CENTRAL 22:40
PROVIDERS: ADMIT Nurse Practitioner; ATTEND Family Medicine
PROC: 0DB88ZX Excision of Small Intestine, Via Natural or Artificial Opening Endoscopic, Diagnostic (ICD-10-PCS; 2019-07-29)
PROC: 0DB68ZX Excision of Stomach, Via Natural or Artificial Opening Endoscopic, Diagnostic (ICD-10-PCS; 2019-07-29)
PROC: 0DB38ZX Excision of Lower Esophagus, Via Natural or Artificial Opening Endoscopic, Diagnostic (ICD-10-PCS; principal; 2019-07-29 15:00)
PROC: 0DBF8ZX Excision of Right Large Intestine, Via Natural or Artificial Opening Endoscopic, Diagnostic (ICD-10-PCS; 2019-07-31)
PROC: 0DBN8ZX Excision of Sigmoid Colon, Via Natural or Artificial Opening Endoscopic, Diagnostic (ICD-10-PCS; 2019-07-31)
DX: K22.11 Ulcer of esophagus with bleeding (principal); J44.1 Chronic obstructive pulmonary disease with (acute) exacerbation; Z68.41 Body mass index [BMI] 40.0-44.9, adult; K29.01 Acute gastritis with bleeding; E66.01 Morbid (severe) obesity due to excess calories; I10 Essential (primary) hypertension; K44.9 Diaphragmatic hernia without obstruction or gangrene; K64.8 Other hemorrhoids; F41.9 Anxiety disorder, unspecified; G89.29 Other chronic pain; M54.9 Dorsalgia, unspecified; K62.1 Rectal polyp; K63.89 Other specified diseases of intestine; E11.9 Type 2 diabetes mellitus without complications; K59.09 Other constipation; Z82.49 Family history of ischemic heart disease and other diseases of the circulatory system; Z87.11 Personal history of peptic ulcer disease; Z83.3 Family history of diabetes mellitus; Z87.19 Personal history of other diseases of the digestive system; Z88.1 Allergy status to other antibiotic agents
CPT/HCPCS: 36415; 43239; 45384; 71045; 74176; 80048; 80053; 81001; 82962; 83036; 84702; 85025; 85610; 85730; 86850; 86900; 86901; 94640; 96374; C9113; G0378; J2250; J2405

== ENCOUNTER 2020-06-21 11:04 | Emergency (ER) | payer MEDICARE, MEDICAID ==
[~2020-06-21] VITALS: Ht 160 cm; Wt 99.8 kg
[~2020-06-21 11:04] MED LIST changes: +AMIT10TA6 PO; -FURO1TAB33 PO; +FURO40TA4 PO; +HYDR4TAB2 PO; -INSLANTI SC; +INSU1INJ19 SC; +IPRA0.00 NEB; +MELO1TAB56 PO; -ONDA-144 PO; +ONDA-180 PO; +PANT40TA2 PO; -PERCOT PO; +POTA10TA32 PO
[2020-06-21 13:10] VITALS: BP 123/80
[2020-06-21] MEDS ORDERED: KETOROLAC TROMETH 60MG/2ML VIAL IM ONE (13:45)
[2020-06-21] MEDS ORDERED: HYDROcodone-ACET 5/325MG TAB PO ONE (13:45)
== END 2020-06-21 14:00 | disposition home or self-care (01) ==
LOC: ER 11:04
DX: G89.29 Other chronic pain (principal); R10.2 Pelvic and perineal pain; N39.0 Urinary tract infection, site not specified; J44.9 Chronic obstructive pulmonary disease, unspecified; E11.9 Type 2 diabetes mellitus without complications; Z86.2 Personal history of diseases of the blood and blood-forming organs and certain disorders involving the immune mechanism; Z79.4 Long term (current) use of insulin; Z79.899 Other long term (current) drug therapy; Z88.1 Allergy status to other antibiotic agents; Z88.2 Allergy status to sulfonamides
CPT/HCPCS: 81002; 81025; 96372; 99283; J1885

== ENCOUNTER 2020-07-08 10:45 | Emergency (ER) | payer MEDICARE, MEDICAID ==
[~2020-07-08] VITALS: Ht 160 cm; Wt 99.8 kg
[~2020-07-08 10:45] MED LIST changes: -AMIT10TA6 PO; +AMIT1TAB34 PO
[2020-07-08 11:20] LABS: Basophils # (auto) 0.1 10 ^3/uL (0-0.2); Basophils % (auto) 0.9 % (0.0-2.0); Eosinophils # (auto) 0.1 10 ^3/uL (0-0.8); Hematocrit 41.5 % (36.0-46.0); Hemoglobin 13.7 g/dL (12.2-16.2); Lymphocytes # (auto) 2.7 10 ^3/uL (0.4-5.4); Lymphocytes % (auto) 30.9 % (10.0-50.0); Mean Corpuscular Hemoglobin 29.4 pg (28.0-32.0); Mean Corpuscular Hgb Conc. 33.1 g/dL (32.0-36.0); Mean Corpuscular Volume 88.7 fL (80.0-100.0); Monocytes # (auto) 0.4 10 ^3/uL (0-1.3); Monocytes % (auto) 4.4 % (0.0-12.0); Neutrophils # (auto) 5.4 10 ^3/uL (1.6-8.6); Neutrophils % (auto) 62.8 % (37.0-80.0); Nucleated Red Blood Cells % 0.2 %; Red Blood Cells 4.68 10^6/uL (4.0-5.20); Red Cell Distribution Width 15.1 % (11.8-14.3); White Blood Cell 8.7 10^3/uL (4.4-10.8)
[2020-07-08 11:30] LABS: Chloride 106 mmol/L (98-107); Potassium 3.9 mmol/L (3.5-5.1); Sodium 138 mmol/L (136-145)
[2020-07-08 11:39] LABS: Anion Gap 8 (5-15); BUN/Creatinine Ratio 18.3; Blood Urea Nitrogen 13 mg/dL (7-18); Calcium 8.8 mg/dL (8.5-10.1); Carbon Dioxide 24 mmol/L (21-32); GFR African American 113 mL/min; GFR Non-African American 93 mL/min; Glucose 124 mg/dL (74-106)
[2020-07-08 12:41] VITALS: BP 104/72
[2020-07-08] MEDS ORDERED: KETOROLAC TROMETH 60MG/2ML VIAL IM ONE (13:00)
== END 2020-07-08 13:28 | disposition home or self-care (01) ==
LOC: ER 10:45
DX: S29.011A Strain of muscle and tendon of front wall of thorax, initial encounter (principal); S46.912A Strain of unspecified muscle, fascia and tendon at shoulder and upper arm level, left arm, initial encounter; J44.9 Chronic obstructive pulmonary disease, unspecified; Z79.4 Long term (current) use of insulin; Z79.899 Other long term (current) drug therapy; Z88.0 Allergy status to penicillin; Z88.1 Allergy status to other antibiotic agents; Z88.2 Allergy status to sulfonamides; Z91.012 Allergy to eggs; Z88.8 Allergy status to other drugs, medicaments and biological substances; X50.1XXA Overexertion from prolonged static or awkward postures, initial encounter; Y93.89 Activity, other specified; Y92.89 Other specified places as the place of occurrence of the external cause; Y99.8 Other external cause status
CPT/HCPCS: 36415; 71046; 80048; 84484; 85025; 93005; 96372; 99285; J1885

== ENCOUNTER → 2020-08-25 | Outpatient (CLI) | payer MEDICARE, MEDICAID ==
[~2020-08-25] MED LIST changes: +AMIT10TA6 PO; -AMIT1TAB34 PO; +BUPIVACAINE HCL 0.25% P/F 10 ML VIAL ONE; +IOHEXOL 300 MG/ML 100ML BOTTLE IJ ONE; +LIDOCAINE 2%HCL (LOCAL ANESTH.) INJ 20ML MDV ONE; +methylPREDNISolone ACETATE 80 MG/ML VL ONE
== END | disposition home or self-care (01) ==
LOC: XY 09:55
PROVIDERS: ATTEND Orthopaedic Surgery Sports Medicine
DX: M25.551 Pain in right hip (principal); J44.9 Chronic obstructive pulmonary disease, unspecified; G47.30 Sleep apnea, unspecified; F41.9 Anxiety disorder, unspecified; F99 Mental disorder, not otherwise specified; Z80.8 Family history of malignant neoplasm of other organs or systems; Z88.1 Allergy status to other antibiotic agents; Z88.0 Allergy status to penicillin; Z88.8 Allergy status to other drugs, medicaments and biological substances; Z98.51 Tubal ligation status; Z88.7 Allergy status to serum and vaccine
CPT/HCPCS: 20610; 73501; 77002; J1040; J3490; Q9967

== ENCOUNTER 2020-10-06 17:08 | Emergency (ER) | payer MEDICARE, MEDICAID ==
[~2020-10-06] VITALS: Ht 160 cm; Wt 98.9 kg
[~2020-10-06 17:08] MED LIST changes: -BUPIVACAINE HCL 0.25% P/F 10 ML VIAL ONE; -IOHEXOL 300 MG/ML 100ML BOTTLE IJ ONE; -LIDOCAINE 2%HCL (LOCAL ANESTH.) INJ 20ML MDV ONE; -methylPREDNISolone ACETATE 80 MG/ML VL ONE
[2020-10-06 18:31] LABS: Basophils # (auto) 0 10 ^3/uL (0-0.2); Basophils % (auto) 0.4 % (0.0-2.0); Eosinophils # (auto) 0.1 10 ^3/uL (0-0.8); Eosinophils % (auto) 0.5 % (0.0-7.0); Hematocrit 43.9 % (36.0-46.0); Hemoglobin 14.3 g/dL (12.2-16.2); Lymphocytes # (auto) 1.7 10 ^3/uL (0.4-5.4); Lymphocytes % (auto) 14.3 % (10.0-50.0); Mean Corpuscular Hgb Conc. 32.7 g/dL (32.0-36.0); Mean Corpuscular Volume 91.7 fL (80.0-100.0); Monocytes # (auto) 0.4 10 ^3/uL (0-1.3); Monocytes % (auto) 3.7 % (0.0-12.0); Neutrophils # (auto) 9.6 10 ^3/uL (1.6-8.6); Neutrophils % (auto) 81.1 % (37.0-80.0); Nucleated Red Blood Cells % 0.1 %; Red Blood Cells 4.79 10^6/uL (4.0-5.20); White Blood Cell 11.8 10^3/uL (4.4-10.8)
[2020-10-06 18:53] LABS: Albumin 3.9 g/dL (3.4-5.0); Anion Gap 6 (5-15); Blood Urea Nitrogen 16 mg/dL (7-18); Calcium 9.3 mg/dL (8.5-10.1); Carbon Dioxide 29 mmol/L (21-32); Chloride 105 mmol/L (98-107); Glucose 98 mg/dL (74-106); Lipase 119 U/L (73-393); Magnesium 2.9 mg/dL (1.6-2.6); Sodium 140 mmol/L (136-145)
[2020-10-06 18:57] LABS: Alanine Aminotransferase 26 U/L (13-56); Alkaline Phosphatase 102 U/L (45-117); Aspartate Aminotransferase 26 U/L (15-37); BUN/Creatinine Ratio 17.4; Bilirubin, Total 0.3 mg/dL (0.2-1.0); GFR African American 84 mL/min; GFR Non-African American 69 mL/min; Total Protein 8.7 g/dL (6.4-8.2)
[2020-10-06 21:12] VITALS: BP 136/96
== END 2020-10-06 21:12 | disposition home or self-care (01) ==
LOC: ER 17:08
DX: K59.00 Constipation, unspecified (principal); J44.9 Chronic obstructive pulmonary disease, unspecified; F12.10 Cannabis abuse, uncomplicated; Z88.0 Allergy status to penicillin; Z88.1 Allergy status to other antibiotic agents
CPT/HCPCS: 36415; 74176; 80053; 83605; 83690; 83735; 84484; 85025

== ENCOUNTER 2020-10-07 09:59 | Inpatient (IN) | payer MEDICARE, MEDICAID ==
[~2020-10-07] VITALS: Ht 160 cm; Wt 109.8 kg
[~2020-10-07 09:59] MED LIST changes: -AMIT10TA6 PO; +AMIT1TAB34 PO
[2020-10-07] MEDS ORDERED: SODIUM CHLORIDE 0.9% 1,000 ML IV ONE ×3 (10:45→17:00)
[2020-10-07 10:55] LABS: Basophils # (auto) 0 10 ^3/uL (0-0.2); Basophils % (auto) 0.5 % (0.0-2.0); Eosinophils # (auto) 0.1 10 ^3/uL (0-0.8); Eosinophils % (auto) 0.8 % (0.0-7.0); Hematocrit 38.9 % (36.0-46.0); Hemoglobin 13.3 g/dL (12.2-16.2); Lymphocytes % (auto) 21.5 % (10.0-50.0); Mean Corpuscular Hemoglobin 30.4 pg (28.0-32.0); Mean Corpuscular Hgb Conc. 34.1 g/dL (32.0-36.0); Mean Corpuscular Volume 89.1 fL (80.0-100.0); Monocytes # (auto) 0.5 10 ^3/uL (0-1.3); Monocytes % (auto) 5.1 % (0.0-12.0); Neutrophils # (auto) 6.8 10 ^3/uL (1.6-8.6); Neutrophils % (auto) 72.1 % (37.0-80.0); Nucleated Red Blood Cells % 0.1 %; Red Blood Cells 4.36 10^6/uL (4.0-5.20); White Blood Cell 9.5 10^3/uL (4.4-10.8)
[2020-10-07 11:15] LABS: Albumin 3.6 g/dL (3.4-5.0); Calcium 8.8 mg/dL (8.5-10.1); Potassium 4.1 mmol/L (3.5-5.1)
[2020-10-07 11:17] LABS: BUN/Creatinine Ratio 15.2; Bilirubin, Total 0.3 mg/dL (0.2-1.0); Total Protein 7.5 g/dL (6.4-8.2)
[2020-10-07 11:27] LABS: INR 1.1 (0.9-1.15); Partial Thromboplastin Time 27.4 sec (23.6-33.0)
[2020-10-07 13:39] LABS: Urine Bacteria MANY /hpf (None Seen); Urine Blood 1+ /uL (Negative); Urine Mucus FEW (None Seen); Urine Specific Gravity 1.027 (1.001-1.035); Urine WBC 116 /hpf (0 - 5)
[2020-10-07] MEDS ORDERED: cefTRIAXone 1GM/50ML D5W 50 ML IV ONE (16:00)
[2020-10-07] MEDS ORDERED: GOLYTELY 4L KIT PO ONE (16:30)
[2020-10-07] MEDS ORDERED: LABETALOL HCL 5 MG/ML 4ML SYRINGE IV PRN (17:00)
[2020-10-07] MEDS: SODIUM CHLORIDE 0.9% 1,000 ML IV SCH (17:00)
[2020-10-07] MEDS ORDERED: NITROGLYCERIN 0.4 MG SL TAB SL PRN (17:00)
[2020-10-07] MEDS: HYDROmorphone HCL 2 MG/ML VL IV PRN (17:49)
[2020-10-07] MEDS: SUCRALFATE 1 GM/10 ML ORAL SUSP PO SCH ×2 (19:05→21:36)
[2020-10-07] MEDS: PANTOPRAZOLE 40 MG/10 ML VIAL INJ IV SCH ×2 (19:05→21:35)
[2020-10-07 19:18] LABS: Hematocrit 37.6 % (36.0-46.0); Hemoglobin 12.9 g/dL (12.2-16.2)
[2020-10-07 20:26] VITALS: BP 144/75
[2020-10-07] MEDS: metroNIDAZOLE 500MG/100ML 100 ML IV SCH (21:51)
[2020-10-07 22:00] VITALS: BP 145/92
[2020-10-07] MEDS: BUDESONIDE (INHALATION) 0.5 MG/2 ML NEB NEB SCH (22:00)
[2020-10-07 23:15] LABS: Hematocrit 37.2 % (36.0-46.0); Hemoglobin 12.5 g/dL (12.2-16.2)
[2020-10-08] MEDS: SODIUM CHLORIDE 0.9% 1,000 ML IV SCH ×3 (02:35→17:00)
[2020-10-08] MEDS: HYDROmorphone HCL 2 MG/ML VL IV PRN ×3 (02:45→17:51)
[2020-10-08] MEDS ORDERED: DOCU-94 PO (04:47)
[2020-10-08] MEDS ORDERED: OXY5T GT (04:47)
[2020-10-08] MEDS ORDERED: BACL10TA PO (04:47)
[2020-10-08] MEDS: SUCRALFATE 1 GM/10 ML ORAL SUSP PO SCH ×4 (05:55→21:22)
[2020-10-08 06:02] VITALS: BP 140/82
[2020-10-08 06:37] LABS: Basophils # (auto) 0.1 10 ^3/uL (0-0.2); Basophils % (auto) 0.6 % (0.0-2.0); Eosinophils # (auto) 0.2 10 ^3/uL (0-0.8); Eosinophils % (auto) 1.9 % (0.0-7.0); Hematocrit 37.1 % (36.0-46.0); Hemoglobin 12.7 g/dL (12.2-16.2); Lymphocytes # (auto) 2.8 10 ^3/uL (0.4-5.4); Lymphocytes % (auto) 30.8 % (10.0-50.0); Mean Corpuscular Hemoglobin 30.7 pg (28.0-32.0); Mean Corpuscular Hgb Conc. 34.2 g/dL (32.0-36.0); Mean Corpuscular Volume 89.5 fL (80.0-100.0); Monocytes # (auto) 0.6 10 ^3/uL (0-1.3); Monocytes % (auto) 6.3 % (0.0-12.0); Neutrophils # (auto) 5.5 10 ^3/uL (1.6-8.6); Neutrophils % (auto) 60.4 % (37.0-80.0); Nucleated Red Blood Cells % 0.2 %; Red Blood Cells 4.14 10^6/uL (4.0-5.20); Red Cell Distribution Width 14.8 % (11.8-14.3); White Blood Cell 9.2 10^3/uL (4.4-10.8)
[2020-10-08] MEDS: metroNIDAZOLE 500MG/100ML 100 ML IV SCH ×3 (06:47→21:21)
[2020-10-08 06:58] LABS: Calcium 7.5 mg/dL (8.5-10.1)
[2020-10-08 07:03] LABS: BUN/Creatinine Ratio 13.2; Bilirubin, Total 0.2 mg/dL (0.2-1.0); Total Protein 6.6 g/dL (6.4-8.2)
[2020-10-08 09:00] VITALS: BP 130/94
[2020-10-08] MEDS: cefTRIAXone 1GM/50ML D5W 50 ML IV SCH (09:00)
[2020-10-08] MEDS: PANTOPRAZOLE 40 MG/10 ML VIAL INJ IV SCH ×2 (10:00→21:21)
[2020-10-08] MEDS: BUDESONIDE (INHALATION) 0.5 MG/2 ML NEB NEB SCH ×3 (10:00→22:27)
[2020-10-08 11:36] LABS: Hematocrit 37.5 % (36.0-46.0); Hemoglobin 12.5 g/dL (12.2-16.2)
[2020-10-08 13:00] VITALS: BP 148/92
[2020-10-08] MEDS ORDERED: fentaNYL CITRATE 100 MCG/2 ML VL ONE (13:15)
[2020-10-08] MEDS ORDERED: GLYCOPYRROLATE 0.2 MG/ML 1ML VIAL ONE (13:15)
[2020-10-08] MEDS ORDERED: PROPOFOL 10 MG/ML 20 ML IV ONE (13:15)
[2020-10-08] MEDS ORDERED: ONDANSETRON HCL 4 MG/2 ML VIAL ONE (13:15)
[2020-10-08] MEDS ORDERED: MIDAZOLAM HCL 2MG/2ML 2ml VIAL (1mg/ml) ONE ×2 (13:15→14:16)
[2020-10-08] MEDS ORDERED: HYDROmorphone HCL 2 MG/ML VL IV PRN (14:45)
[2020-10-08] MEDS ORDERED: ONDANSETRON HCL 4 MG/2 ML VIAL IV PRN (14:45)
[2020-10-08 17:00] VITALS: BP 135/88
[2020-10-08] MEDS: LORazepam 2MG/ML-1ML VIAL IV PRN (21:22)
[2020-10-08 22:00] VITALS: BP 127/78
[2020-10-08] MEDS: ALBUTEROL SULF 2.5 MG/0.5ML(0.5%) NEB SOLN NEB PRN (22:27)
[2020-10-08] MEDS: IPRATROPIUM BROM 0.5 MG/2.5ML INH SOL NEB PRN (22:28)
[2020-10-09 05:00] VITALS: BP 130/75
[2020-10-09] MEDS: SODIUM CHLORIDE 0.9% 1,000 ML IV SCH ×3 (05:08→17:00)
[2020-10-09] MEDS: metroNIDAZOLE 500MG/100ML 100 ML IV SCH ×3 (05:08→22:36)
[2020-10-09] MEDS: SUCRALFATE 1 GM/10 ML ORAL SUSP PO SCH ×4 (06:10→22:18)
[2020-10-09] MEDS: BUDESONIDE (INHALATION) 0.5 MG/2 ML NEB NEB SCH ×2 (06:28→06:50)
[2020-10-09] MEDS: HYDROmorphone HCL 2 MG/ML VL IV PRN ×3 (06:35→19:00)
[2020-10-09] MEDS: IPRATROPIUM BROM 0.5 MG/2.5ML INH SOL NEB PRN (06:49)
[2020-10-09] MEDS: ALBUTEROL SULF 2.5 MG/0.5ML(0.5%) NEB SOLN NEB PRN (06:49)
[2020-10-09] MEDS: ONDANSETRON HCL 4 MG/2 ML VIAL IV PRN (08:15)
[2020-10-09 08:52] LABS: Hematocrit 37.4 % (36.0-46.0); Hemoglobin 12.7 g/dL (12.2-16.2)
[2020-10-09 09:00] VITALS: BP 138/86
[2020-10-09] MEDS: cefTRIAXone 1GM/50ML D5W 50 ML IV SCH (09:00)
[2020-10-09] MEDS: PANTOPRAZOLE 40 MG/10 ML VIAL INJ IV SCH ×2 (10:00→22:18)
[2020-10-09 13:00] VITALS: BP 135/69
[2020-10-09] MEDS: METOCLOPRAMIDE HCL 5MG/ml INJ 2ml VIAL IV SCH ×2 (14:00→22:18)
[2020-10-09 17:12] VITALS: BP 133/75
[2020-10-09] MEDS: ALBUTEROL SULF 2.5 MG/0.5ML(0.5%) NEB SOLN NEB SCH (19:13)
[2020-10-09] MEDS: IPRATROPIUM BROM 0.5 MG/2.5ML INH SOL NEB SCH (19:13)
[2020-10-09] MEDS: LORazepam 2MG/ML-1ML VIAL IV PRN (22:19)
[2020-10-09 22:20] VITALS: BP 139/84
[2020-10-10] MEDS: SODIUM CHLORIDE 0.9% 1,000 ML IV SCH ×3 (01:00→19:50)
[2020-10-10] MEDS: HYDROmorphone HCL 2 MG/ML VL IV PRN ×4 (01:15→20:39)
[2020-10-10] MEDS: ONDANSETRON HCL 4 MG/2 ML VIAL IV PRN (01:28)
[2020-10-10 05:15] VITALS: BP 125/80
[2020-10-10] MEDS: METOCLOPRAMIDE HCL 5MG/ml INJ 2ml VIAL IV SCH ×3 (05:26→22:34)
[2020-10-10] MEDS: metroNIDAZOLE 500MG/100ML 100 ML IV SCH ×3 (05:27→22:35)
[2020-10-10] MEDS: SUCRALFATE 1 GM/10 ML ORAL SUSP PO SCH ×4 (06:21→22:34)
[2020-10-10] MEDS: IPRATROPIUM BROM 0.5 MG/2.5ML INH SOL NEB SCH ×3 (06:22→18:27)
[2020-10-10] MEDS: ALBUTEROL SULF 2.5 MG/0.5ML(0.5%) NEB SOLN NEB SCH ×3 (06:23→18:27)
[2020-10-10 09:00] VITALS: BP 122/52
[2020-10-10] MEDS: cefTRIAXone 1GM/50ML D5W 50 ML IV SCH (09:01)
[2020-10-10] MEDS: PANTOPRAZOLE 40 MG/10 ML VIAL INJ IV SCH ×2 (09:01→22:35)
[2020-10-10 13:00] VITALS: BP 136/82
[2020-10-10] MEDS ORDERED: HYOSCYAMINE SULF 0.125 MG ODT TAB PO PRN (13:00)
[2020-10-10] MEDS: ALPRAZolam 0.5 MG TAB PO PRN (14:45)
[2020-10-10 17:00] VITALS: BP 122/86
[2020-10-10] MEDS: ENSURE CLEAR Mixed Berry 8oz Carton PO SCH (18:00)
[2020-10-10] MEDS ORDERED: Ensure Enlive Strawberry 8oz Bottle PO SCH (18:00)
[2020-10-10] MEDS: LORazepam 2MG/ML-1ML VIAL IV PRN (22:49)
[2020-10-10 23:02] VITALS: BP 139/82
[2020-10-11] MEDS: SODIUM CHLORIDE 0.9% 1,000 ML IV SCH ×2 (01:00→09:57)
[2020-10-11 04:53] VITALS: BP 145/90
[2020-10-11] MEDS: HYDROmorphone HCL 2 MG/ML VL IV PRN (05:58)
[2020-10-11] MEDS: SUCRALFATE 1 GM/10 ML ORAL SUSP PO SCH ×2 (05:58→11:30)
[2020-10-11] MEDS: metroNIDAZOLE 500MG/100ML 100 ML IV SCH ×2 (05:58→14:00)
[2020-10-11] MEDS: METOCLOPRAMIDE HCL 5MG/ml INJ 2ml VIAL IV SCH ×2 (05:58→14:00)
[2020-10-11] MEDS: ENSURE CLEAR Mixed Berry 8oz Carton PO SCH ×2 (08:00→12:00)
[2020-10-11] MEDS: IPRATROPIUM BROM 0.5 MG/2.5ML INH SOL NEB SCH ×2 (08:10→13:19)
[2020-10-11] MEDS: ALBUTEROL SULF 2.5 MG/0.5ML(0.5%) NEB SOLN NEB SCH ×2 (08:11→13:19)
[2020-10-11] MEDS ORDERED: LACTULOSE 20Gm/30ML SOLN PO PRN (09:45)
[2020-10-11] MEDS: PANTOPRAZOLE 40 MG/10 ML VIAL INJ IV SCH (09:56)
[2020-10-11] MEDS: cefTRIAXone 1GM/50ML D5W 50 ML IV SCH (09:56)
[2020-10-11] MEDS: ALPRAZolam 0.5 MG TAB PO PRN (10:00)
[2020-10-11 14:12] VITALS: BP 149/85
== END 2020-10-11 15:30 | disposition home or self-care (01) | DRG 393 ==
LOC: ER 09:59 → OVERFLOW 16:51 → WEST WING 20:14
PROVIDERS: ADMIT Family Medicine; ATTEND Family Medicine
PROC: 0DB68ZX Excision of Stomach, Via Natural or Artificial Opening Endoscopic, Diagnostic (ICD-10-PCS; principal; 2020-10-08 13:53)
PROC: 0DBG8ZX Excision of Left Large Intestine, Via Natural or Artificial Opening Endoscopic, Diagnostic (ICD-10-PCS; 2020-10-08 13:53)
DX: K55.9 Vascular disorder of intestine, unspecified (principal); K29.71 Gastritis, unspecified, with bleeding; K29.81 Duodenitis with bleeding; N39.0 Urinary tract infection, site not specified; J44.1 Chronic obstructive pulmonary disease with (acute) exacerbation; E86.0 Dehydration; K59.09 Other constipation; K44.9 Diaphragmatic hernia without obstruction or gangrene; F11.10 Opioid abuse, uncomplicated; G89.4 Chronic pain syndrome; Z20.822 Contact with and (suspected) exposure to COVID-19; M19.90 Unspecified osteoarthritis, unspecified site; E11.9 Type 2 diabetes mellitus without complications; G40.909 Epilepsy, unspecified, not intractable, without status epilepticus; M25.552 Pain in left hip; F12.90 Cannabis use, unspecified, uncomplicated; M47.9 Spondylosis, unspecified; F41.9 Anxiety disorder, unspecified; M25.551 Pain in right hip; Z88.1 Allergy status to other antibiotic agents; Z79.891 Long term (current) use of opiate analgesic; Z82.49 Family history of ischemic heart disease and other diseases of the circulatory system; Z87.11 Personal history of peptic ulcer disease; Z88.2 Allergy status to sulfonamides; Z88.0 Allergy status to penicillin; Z91.012 Allergy to eggs; Z88.7 Allergy status to serum and vaccine; Z88.3 Allergy status to other anti-infective agents; K22.2 Esophageal obstruction
CPT/HCPCS: 36415; 71045; 74176; 80053; 81001; 82962; 83605; 83690; 83735; 84443; 84484; 84702; 85014; 85018; 85025; 85610; 85730; 86850; 86900; 86901; 87086; 94640; 96361; 96365; C9113; G0378; J0696; J2250; J2405; J2704; J3490

== ENCOUNTER 2021-05-26 08:37 | Emergency (ER) | payer MEDICARE, MEDICAID ==
[~2021-05-26] VITALS: Ht 160 cm; Wt 99.8 kg
[~2021-05-26 08:37] MED LIST changes: -AMIT1TAB34 PO; +BACL10TA PO; +DOCU-94 PO; -FURO40TA4 PO; -HYDR4TAB2 PO; +OXY5T GT; -SENN8.6C PO; -TIZA4CAP13 PO
[2021-05-26 08:50] VITALS: BP 115/85
[2021-05-26] MEDS ORDERED: KETOROLAC TROMETH 60MG/2ML VIAL IM ONE (09:15)
[2021-05-26] MEDS ORDERED: IBUP800T27 PO (10:13)
== END 2021-05-26 10:19 | disposition home or self-care (01) ==
LOC: ER 08:37
DX: M23.92 Unspecified internal derangement of left knee (principal); F12.10 Cannabis abuse, uncomplicated; J44.9 Chronic obstructive pulmonary disease, unspecified; I10 Essential (primary) hypertension; Z88.0 Allergy status to penicillin; Z88.2 Allergy status to sulfonamides; Z88.1 Allergy status to other antibiotic agents
CPT/HCPCS: 73562; 96372; 99283; J1885

== ENCOUNTER 2021-09-10 06:31 | Inpatient (IN) | payer MEDICARE, MEDICAID ==
[~2021-09-10] VITALS: Ht 160 cm; Wt 110.8 kg
[~2021-09-10 06:31] MED LIST changes: +IBUP800T27 PO
[2021-09-10] MEDS ORDERED: IPRATROPIUM BROM 0.5 MG/2.5ML INH SOL NEB ONE (07:15)
[2021-09-10] MEDS ORDERED: ALBUTEROL SULF 2.5 MG/0.5ML(0.5%) NEB SOLN NEB ONE (07:15)
[2021-09-10] MEDS ORDERED: methylPREDNISolone SOD SUCC 125 MG/2 ML VL IV ONE (07:45)
[2021-09-10] MEDS ORDERED: cefTRIAXone 1GM/50ML D5W 50 ML IV ONE (08:15)
[2021-09-10] MEDS ORDERED: AZITHROMYCIN 500MG/ 250ML 250 ML IV ONE (08:15)
[2021-09-10 09:22] LABS: Basophils # (auto) 0.1 10 ^3/uL (0-0.2); Basophils % (auto) 0.5 % (0.0-2.0); Eosinophils # (auto) 0.1 10 ^3/uL (0-0.8); Eosinophils % (auto) 0.8 % (0.0-7.0); Hematocrit 37.6 % (36.0-46.0); Hemoglobin 12.3 g/dL (12.2-16.2); Lymphocytes % (auto) 17.3 % (10.0-50.0); Mean Corpuscular Hemoglobin 29.1 pg (28.0-32.0); Mean Corpuscular Hgb Conc. 32.7 g/dL (32.0-36.0); Mean Corpuscular Volume 89.1 fL (80.0-100.0); Monocytes # (auto) 0.5 10 ^3/uL (0-1.3); Monocytes % (auto) 4.5 % (0.0-12.0); Neutrophils # (auto) 8.8 10 ^3/uL (1.6-8.6); Neutrophils % (auto) 76.9 % (37.0-80.0); Red Blood Cells 4.22 10^6/uL (4.0-5.20); Red Cell Distribution Width 14.3 % (11.8-14.3); White Blood Cell 11.4 10^3/uL (4.4-10.8)
[2021-09-10 09:32] LABS: Albumin 3.6 g/dL (3.4-5.0); Calcium 8.6 mg/dL (8.5-10.1); Potassium 3.7 mmol/L (3.5-5.1)
[2021-09-10 09:35] LABS: BUN/Creatinine Ratio 14.3; Bilirubin, Total 0.2 mg/dL (0.2-1.0); Total Protein 7.8 g/dL (6.4-8.2)
[2021-09-10 11:53] VITALS: BP 137/86
[2021-09-10] MEDS: SODIUM CHLORIDE 0.9% 1,000 ML IV SCH (11:54)
[2021-09-10] MEDS: ALBUTEROL SULF 2.5 MG/0.5ML(0.5%) NEB SOLN NEB SCH ×2 (12:00→19:38)
[2021-09-10] MEDS: IPRATROPIUM BROM 0.5 MG/2.5ML INH SOL NEB SCH ×2 (12:00→19:39)
[2021-09-10] MEDS: MORPHINE SULFATE INJ 2 MG/ml SYRG IV PRN ×3 (13:07→22:23)
[2021-09-10 14:36] VITALS: BP 157/89
[2021-09-10 17:00] VITALS: BP 149/95
[2021-09-10 20:20] VITALS: BP 144/77
[2021-09-10 22:00] VITALS: BP 144/77
[2021-09-11] MEDS: MORPHINE SULFATE INJ 2 MG/ml SYRG IV PRN ×3 (02:02→14:07)
[2021-09-11] MEDS: ALBUTEROL SULF 2.5 MG/0.5ML(0.5%) NEB SOLN NEB PRN ×2 (02:20→14:34)
[2021-09-11] MEDS: IPRATROPIUM BROM 0.5 MG/2.5ML INH SOL NEB PRN ×2 (02:20→14:34)
[2021-09-11] MEDS: SODIUM CHLORIDE 0.9% 1,000 ML IV SCH ×3 (02:57→13:15)
[2021-09-11 04:44] LABS: Basophils # (auto) 0 10 ^3/uL (0-0.2); Eosinophils # (auto) 0 10 ^3/uL (0-0.8); Hematocrit 36.5 % (36.0-46.0); Hemoglobin 12.3 g/dL (12.2-16.2); Lymphocytes # (auto) 1.6 10 ^3/uL (0.4-5.4); Lymphocytes % (auto) 13.1 % (10.0-50.0); Mean Corpuscular Hemoglobin 30.3 pg (28.0-32.0); Mean Corpuscular Hgb Conc. 33.9 g/dL (32.0-36.0); Mean Corpuscular Volume 89.4 fL (80.0-100.0); Monocytes # (auto) 0.6 10 ^3/uL (0-1.3); Monocytes % (auto) 4.7 % (0.0-12.0); Neutrophils % (auto) 82.2 % (37.0-80.0); Nucleated Red Blood Cells % 0.1 %; Red Blood Cells 4.08 10^6/uL (4.0-5.20); Red Cell Distribution Width 14.1 % (11.8-14.3); White Blood Cell 12.2 10^3/uL (4.4-10.8)
[2021-09-11 04:57] LABS: Albumin 3.7 g/dL (3.4-5.0); BUN/Creatinine Ratio 15.7; Calcium 8.4 mg/dL (8.5-10.1); Potassium 3.8 mmol/L (3.5-5.1)
[2021-09-11 05:00] VITALS: BP 139/76
[2021-09-11 05:00] LABS: Bilirubin, Total 0.2 mg/dL (0.2-1.0); Total Protein 7.9 g/dL (6.4-8.2)
[2021-09-11] MEDS: ALBUTEROL SULF 2.5 MG/0.5ML(0.5%) NEB SOLN NEB SCH ×4 (07:11→19:16)
[2021-09-11] MEDS: IPRATROPIUM BROM 0.5 MG/2.5ML INH SOL NEB SCH ×4 (07:12→19:16)
[2021-09-11 09:00] VITALS: BP 148/71
[2021-09-11] MEDS: methylPREDNISolone SOD SUCC 125 MG/2 ML VL IV SCH ×2 (10:08→22:21)
[2021-09-11] MEDS: ENOXAPARIN SOD 40 MG/0.4 ML SYRINGE SC SCH (10:08)
[2021-09-11] MEDS: AZITHROMYCIN 500MG/ 250ML 250 ML IV SCH (10:09)
[2021-09-11 12:44] VITALS: BP 143/75
[2021-09-11 17:00] VITALS: BP 138/79
[2021-09-11] MEDS: ACETYLCYSTEINE 10 %(100MG/ML) SOL 4ML NEB SCH (19:16)
[2021-09-11] MEDS: HYDROmorphone HCL 2 MG/ML VL/or syr IV PRN (20:49)
[2021-09-11 22:00] VITALS: BP 133/73
[2021-09-12] MEDS: SODIUM CHLORIDE 0.9% 1,000 ML IV SCH ×3 (00:09→19:01)
[2021-09-12] MEDS: IPRATROPIUM BROM 0.5 MG/2.5ML INH SOL NEB SCH ×4 (00:30→19:22)
[2021-09-12] MEDS: ALBUTEROL SULF 2.5 MG/0.5ML(0.5%) NEB SOLN NEB SCH ×4 (00:31→19:22)
[2021-09-12] MEDS: HYDROmorphone HCL 2 MG/ML VL/or syr IV PRN ×4 (04:44→20:21)
[2021-09-12 05:00] VITALS: BP 145/69
[2021-09-12] MEDS: ACETYLCYSTEINE 10 %(100MG/ML) SOL 4ML NEB SCH ×3 (06:38→19:22)
[2021-09-12] MEDS ORDERED: POLYETHYLENE GLYCOL 17 GM PWDR PO ONE (09:00)
[2021-09-12 09:24] VITALS: BP 151/89
[2021-09-12] MEDS: methylPREDNISolone SOD SUCC 125 MG/2 ML VL IV SCH ×2 (09:43→22:26)
[2021-09-12] MEDS: AZITHROMYCIN 500MG/ 250ML 250 ML IV SCH (09:44)
[2021-09-12] MEDS: ENOXAPARIN SOD 40 MG/0.4 ML SYRINGE SC SCH (09:44)
[2021-09-12] MEDS: ONDANSETRON HCL 4 MG/2 ML VIAL IV PRN ×3 (09:45→20:21)
[2021-09-12 13:36] VITALS: BP 147/100
[2021-09-12 16:38] VITALS: BP 147/80
[2021-09-12 18:44] LABS: Urine Bacteria NONE SEEN /hpf (None Seen); Urine Blood Negative /uL (Negative); Urine Specific Gravity 1.008 (1.001-1.035); Urine WBC <1 /hpf (0 - 5)
[2021-09-12 18:49] LABS: Alcohol, Urine < 3.0 mg/dL (0-10); Amphetamine Screen, Urine NEGATIVE (NEGATIVE); Barbiturate Scree,Urine NEGATIVE (NEGATIVE); Benzodiazephine Screen, Urine NEGATIVE (NEGATIVE); Cannabinoid Screen, Urine NEGATIVE (NEGATIVE); Cocaine Screen, Urine NEGATIVE (NEGATIVE); Opiate Scree,Urine NEGATIVE (NEGATIVE); Phencyclidine Screen, Urine NEGATIVE (NEGATIVE)
[2021-09-12 22:00] VITALS: BP 147/95
[2021-09-13] MEDS: IPRATROPIUM BROM 0.5 MG/2.5ML INH SOL NEB SCH ×5 (00:29→23:55)
[2021-09-13] MEDS: ALBUTEROL SULF 2.5 MG/0.5ML(0.5%) NEB SOLN NEB SCH ×5 (00:31→23:55)
[2021-09-13] MEDS: ONDANSETRON HCL 4 MG/2 ML VIAL IV PRN ×4 (00:50→18:51)
[2021-09-13] MEDS: HYDROmorphone HCL 2 MG/ML VL/or syr IV PRN ×5 (00:55→23:01)
[2021-09-13 05:00] VITALS: BP 156/87
[2021-09-13] MEDS: SODIUM CHLORIDE 0.9% 1,000 ML IV SCH ×2 (05:15→15:32)
[2021-09-13] MEDS: ACETYLCYSTEINE 10 %(100MG/ML) SOL 4ML NEB SCH ×3 (07:02→17:54)
[2021-09-13 09:00] VITALS: BP 149/88
[2021-09-13 09:56] VITALS: BP 149/88
[2021-09-13] MEDS: POLYETHYLENE GLYCOL 17 GM PWDR PO SCH (10:02)
[2021-09-13] MEDS: methylPREDNISolone SOD SUCC 125 MG/2 ML VL IV SCH ×2 (10:02→23:00)
[2021-09-13] MEDS: AZITHROMYCIN 250 MG TAB PO SCH (10:03)
[2021-09-13] MEDS: ENOXAPARIN SOD 40 MG/0.4 ML SYRINGE SC SCH (10:03)
[2021-09-13 13:00] VITALS: BP 156/78
[2021-09-13 16:41] VITALS: BP 127/82
[2021-09-13 22:00] VITALS: BP 152/81
[2021-09-14] MEDS: HYDROmorphone HCL 2 MG/ML VL/or syr IV PRN ×4 (04:10→22:19)
[2021-09-14 05:00] VITALS: BP 154/74
[2021-09-14] MEDS ORDERED: ALBUTEROL SULF 2.5 MG/0.5ML(0.5%) NEB SOLN ONE (05:38)
[2021-09-14] MEDS ORDERED: IPRATROPIUM BROM 0.5 MG/2.5ML INH SOL ONE (05:38)
[2021-09-14] MEDS: ACETYLCYSTEINE 10 %(100MG/ML) SOL 4ML NEB SCH ×3 (06:03→19:05)
[2021-09-14] MEDS: ALBUTEROL SULF 2.5 MG/0.5ML(0.5%) NEB SOLN NEB SCH ×3 (06:06→19:06)
[2021-09-14] MEDS: IPRATROPIUM BROM 0.5 MG/2.5ML INH SOL NEB SCH ×3 (06:06→19:06)
[2021-09-14] MEDS: AZITHROMYCIN 250 MG TAB PO SCH (08:53)
[2021-09-14] MEDS: POLYETHYLENE GLYCOL 17 GM PWDR PO SCH (08:54)
[2021-09-14] MEDS: ENOXAPARIN SOD 40 MG/0.4 ML SYRINGE SC SCH (08:54)
[2021-09-14 09:00] VITALS: BP 160/99
[2021-09-14] MEDS: methylPREDNISolone SOD SUCC 125 MG/2 ML VL IV SCH ×2 (09:07→22:18)
[2021-09-14 13:00] VITALS: BP 163/90
[2021-09-14 16:36] VITALS: BP 151/96
[2021-09-14 22:00] VITALS: BP 139/87
[2021-09-15] MEDS ORDERED: ALBUTEROL SULF 2.5 MG/0.5ML(0.5%) NEB SOLN NEB PRN (00:45)
[2021-09-15] MEDS ORDERED: IPRATROPIUM BROM 0.5 MG/2.5ML INH SOL NEB PRN (00:45)
[2021-09-15 05:00] VITALS: BP 131/87
[2021-09-15 05:15] LABS: Basophils # (auto) 0.1 10 ^3/uL (0-0.2); Basophils % (auto) 0.5 % (0.0-2.0); Eosinophils # (auto) 0 10 ^3/uL (0-0.8); Eosinophils % (auto) 0.1 % (0.0-7.0); Hematocrit 39.1 % (36.0-46.0); Lymphocytes # (auto) 1.7 10 ^3/uL (0.4-5.4); Lymphocytes % (auto) 9.5 % (10.0-50.0); Mean Corpuscular Hemoglobin 29.8 pg (28.0-32.0); Mean Corpuscular Hgb Conc. 33.2 g/dL (32.0-36.0); Mean Corpuscular Volume 89.8 fL (80.0-100.0); Monocytes # (auto) 1.2 10 ^3/uL (0-1.3); Monocytes % (auto) 6.4 % (0.0-12.0); Neutrophils # (auto) 15.4 10 ^3/uL (1.6-8.6); Neutrophils % (auto) 83.5 % (37.0-80.0); Nucleated Red Blood Cells % 0.1 %; Red Blood Cells 4.36 10^6/uL (4.0-5.20); Red Cell Distribution Width 14.2 % (11.8-14.3); White Blood Cell 18.5 10^3/uL (4.4-10.8)
[2021-09-15 05:36] LABS: BUN/Creatinine Ratio 24.4; Calcium 8.7 mg/dL (8.5-10.1)
[2021-09-15] MEDS: HYDROmorphone HCL 2 MG/ML VL/or syr IV PRN ×4 (05:42→20:41)
[2021-09-15] MEDS: ALBUTEROL SULF 2.5 MG/0.5ML(0.5%) NEB SOLN NEB SCH ×3 (06:54→22:14)
[2021-09-15] MEDS: ACETYLCYSTEINE 10 %(100MG/ML) SOL 4ML NEB SCH ×3 (06:54→22:13)
[2021-09-15] MEDS: IPRATROPIUM BROM 0.5 MG/2.5ML INH SOL NEB SCH ×3 (06:54→22:14)
[2021-09-15 09:00] VITALS: BP 140/82
[2021-09-15] MEDS: POLYETHYLENE GLYCOL 17 GM PWDR PO SCH (09:52)
[2021-09-15] MEDS: methylPREDNISolone SOD SUCC 125 MG/2 ML VL IV SCH ×2 (09:52→22:37)
[2021-09-15] MEDS: ENOXAPARIN SOD 40 MG/0.4 ML SYRINGE SC SCH (09:53)
[2021-09-15] MEDS: AZITHROMYCIN 250 MG TAB PO SCH (09:53)
[2021-09-15 12:41] VITALS: BP 125/80
[2021-09-15 16:44] VITALS: BP 136/84
[2021-09-15 22:53] VITALS: BP 156/78
[2021-09-16] VITALS (7 sets, daily range): BP systolic 125–166; BP diastolic 71–93
[2021-09-16] MEDS: HYDROmorphone HCL 2 MG/ML VL/or syr IV PRN ×5 (00:49→22:25)
[2021-09-16] MEDS: ALBUTEROL SULF 2.5 MG/0.5ML(0.5%) NEB SOLN NEB SCH ×3 (06:55→21:57)
[2021-09-16] MEDS: IPRATROPIUM BROM 0.5 MG/2.5ML INH SOL NEB SCH ×3 (06:55→21:57)
[2021-09-16] MEDS: ACETYLCYSTEINE 10 %(100MG/ML) SOL 4ML NEB SCH ×3 (06:55→21:57)
[2021-09-16] MEDS: ONDANSETRON HCL 4 MG/2 ML VIAL IV PRN (10:11)
[2021-09-16] MEDS: ENOXAPARIN SOD 40 MG/0.4 ML SYRINGE SC SCH (10:11)
[2021-09-16] MEDS: methylPREDNISolone SOD SUCC 125 MG/2 ML VL IV SCH ×2 (10:11→22:00)
[2021-09-16] MEDS: POLYETHYLENE GLYCOL 17 GM PWDR PO SCH (10:11)
[2021-09-16] MEDS: amLODIPine BESYLATE 5 MG TAB PO ONE ×2 (13:30→16:52)
[2021-09-16] MEDS ORDERED: cloNIDine HCL 0.1 MG TAB PO ONE ×2 (13:30→17:30)
[2021-09-17 05:00] VITALS: BP 131/86
[2021-09-17] MEDS: HYDROmorphone HCL 2 MG/ML VL/or syr IV PRN (06:17)
[2021-09-17] MEDS: ALBUTEROL SULF 2.5 MG/0.5ML(0.5%) NEB SOLN NEB SCH ×2 (06:53→14:13)
[2021-09-17] MEDS: ACETYLCYSTEINE 10 %(100MG/ML) SOL 4ML NEB SCH ×2 (06:53→14:14)
[2021-09-17] MEDS: IPRATROPIUM BROM 0.5 MG/2.5ML INH SOL NEB SCH ×2 (06:53→14:13)
[2021-09-17 08:05] VITALS: BP 146/108
[2021-09-17 08:30] VITALS: BP 146/108
[2021-09-17] MEDS ORDERED: ACETAMINOPHEN 325 MG TAB PO PRN (08:30)
[2021-09-17] MEDS ORDERED: IBUPROFEN 600 MG TAB PO PRN (08:30)
[2021-09-17] MEDS: POLYETHYLENE GLYCOL 17 GM PWDR PO SCH (09:46)
[2021-09-17] MEDS: ENOXAPARIN SOD 40 MG/0.4 ML SYRINGE SC SCH (09:46)
[2021-09-17] MEDS ORDERED: PANTOPRAZOLE 40 MG TAB PO SCH (10:00)
[2021-09-17 13:13] VITALS: BP 157/83
== END 2021-09-17 14:39 | disposition home or self-care (01) | DRG 202 ==
LOC: ER 06:31 → OVERFLOW 11:39 → WEST WING 13:51
PROVIDERS: ADMIT Registered Nurse; ATTEND Internal Medicine
DX: J20.9 Acute bronchitis, unspecified (principal); J44.0 Chronic obstructive pulmonary disease with (acute) lower respiratory infection; J45.901 Unspecified asthma with (acute) exacerbation; J98.11 Atelectasis; Z68.42 Body mass index [BMI] 45.0-49.9, adult; J44.1 Chronic obstructive pulmonary disease with (acute) exacerbation; D64.9 Anemia, unspecified; E66.01 Morbid (severe) obesity due to excess calories; F41.9 Anxiety disorder, unspecified; I10 Essential (primary) hypertension; R06.03 Acute respiratory distress; I80.8 Phlebitis and thrombophlebitis of other sites; Z20.822 Contact with and (suspected) exposure to COVID-19; R56.9 Unspecified convulsions; Z71.3 Dietary counseling and surveillance; Z82.49 Family history of ischemic heart disease and other diseases of the circulatory system; Z82.5 Family history of asthma and other chronic lower respiratory diseases; Z83.3 Family history of diabetes mellitus; Z87.11 Personal history of peptic ulcer disease; Z88.0 Allergy status to penicillin; Z88.2 Allergy status to sulfonamides; Z88.7 Allergy status to serum and vaccine; Z88.1 Allergy status to other antibiotic agents; Z91.012 Allergy to eggs
CPT/HCPCS: 36415; 71045; 73090; 76881; 80048; 80053; 80307; 81001; 83880; 84484; 85025; 85379; 93005; 94640; 96365; 96367; 96375; 99291; G0378; J0696; J2405

== ENCOUNTER 2021-09-18 08:15 | Emergency (ER) | payer MEDICARE, MEDICAID ==
[~2021-09-18] VITALS: Ht 160 cm; Wt 220.0 kg
[2021-09-18 08:15] VITALS: BP 121/73
== END 2021-09-18 11:07 | disposition left against medical advice (07) ==
LOC: EDBD 08:15 → ER 08:15
DX: R06.02 Shortness of breath (principal); R07.89 Other chest pain

== ENCOUNTER → 2022-08-27 | Outpatient (CLI) | payer MEDICARE, MEDICAID ==
[~2022-08-27] MED LIST changes: +IBUP-1456 PO; -IBUP800T27 PO; +MELO-335 PO; -MELO1TAB56 PO; +POTA-228 PO; -POTA10TA32 PO
[2022-08-27 10:33] LABS: Basophils # (auto) 0.1 10 ^3/uL (0-0.2); Basophils % (auto) 0.6 % (0.0-2.0); Eosinophils # (auto) 0.1 10 ^3/uL (0-0.8); Eosinophils % (auto) 1.1 % (0.0-7.0); Hematocrit 37.5 % (36.0-46.0); Hemoglobin 12.5 g/dL (12.2-16.2); Lymphocytes # (auto) 2.3 10 ^3/uL (0.4-5.4); Lymphocytes % (auto) 27.9 % (10.0-50.0); Mean Corpuscular Hemoglobin 29.1 pg (28.0-32.0); Mean Corpuscular Hgb Conc. 33.3 g/dL (32.0-36.0); Mean Corpuscular Volume 87.4 fL (80.0-100.0); Monocytes # (auto) 0.4 10 ^3/uL (0-1.3); Monocytes % (auto) 4.7 % (0.0-12.0); Neutrophils # (auto) 5.4 10 ^3/uL (1.6-8.6); Neutrophils % (auto) 65.7 % (37.0-80.0); Nucleated Red Blood Cells % 0.1 %; Red Blood Cells 4.29 10^6/uL (4.0-5.20); Red Cell Distribution Width 15.2 % (11.8-14.3); White Blood Cell 8.2 10^3/uL (4.4-10.8)
[2022-08-27 11:25] LABS: Albumin 3.6 g/dL (3.4-5.0); BUN/Creatinine Ratio 12.4 (10.0-20.0); Bilirubin, Total 0.2 mg/dL (0.2-1.0); Calcium 8.9 mg/dL (8.5-10.1); Magnesium 2.4 mg/dL (1.6-2.6); Total Protein 7.7 g/dL (6.4-8.2)
== END | disposition home or self-care (01) ==
LOC: LAB 10:12
PROVIDERS: ATTEND Internal Medicine
DX: E11.9 Type 2 diabetes mellitus without complications (principal); R10.9 Unspecified abdominal pain
CPT/HCPCS: 36415; 80053; 83735; 85025

== ENCOUNTER → 2023-03-28 | Outpatient (CLI) | payer MEDICARE, MEDICAID | END | disposition home or self-care (01) | LOC: XYW 08:47 | PROVIDERS: ATTEND Internal Medicine | DX: Z01.818 Encounter for other preprocedural examination (principal); I51.89 Other ill-defined heart diseases | CPT/HCPCS: 93306 ==

== ENCOUNTER 2024-09-29 10:34 | Emergency (ER) | payer OTHER, MEDICARE, MEDICAID ==
[~2024-09-29] VITALS: Ht 157.5 cm; Wt 90.0 kg
[~2024-09-29 10:34] MED LIST changes: -MELO-335 PO; +MELO15TA29 PO
--- NOTE | 2024-09-29 12:16 | ED.PDOC ---
Musculoskeletal HPI Comments This is a 53 year old female presenting to the ED with chief complaint of left knee pain. Patient reports that she suddenly started to experience left knee burning pain since last Saturday with constant pain noted till now. Patient relays that she has tried cooling pads with no relief. Patient states that she was seen by urgent care recently, being diagnosed with gout and prescribed Colchicine, however, no relief has been noted from the medication at this time. Patient notes her pain is now a 10/10. Patient denies any fall, injury, fever, chills, numbness, weakness, or further complaints. Chief Complaint: Lower Extremity Time Seen by MD: 12:14 Primary Care Provider: ADRIEL Reviewed Notes: Nurses Notes, Medications, Allergies Allergies: Coded Allergies: Amoxicillin (Verified Allergy, Unknown, 01/23/15) CHILDHOOD REACTION Egg-derived Products (Verified Allergy, Unknown, 10/11/20) Flu Virus Vaccine (Verified Allergy, Unknown, 07/08/20) Penicillins (Verified Allergy, Unknown, 07/08/20) Sulfa Antibiotics (Verified Allergy, Unknown, 04/25/15) Home Meds Active Scripts Ibuprofen (Ibuprofen) 800 Mg Tab, 800 MG PO TID PRN, #30 TAB Prov:LEI CHEN 05/26/21 Reported Medications Baclofen (Baclofen) 10 Mg Tab, PO Q8HP for 30 Days, MG 10/08/20 Docusate Sodium (Colace) 100 Mg Cap, 2 CAP PO BID, #30 CAP 10/08/20 Oxycodone Hcl (OXYCODONE HCL) 5 Mg Tb, 15 MG GT PRN, TAB 10/08/20 Potassium Chloride (Potassium Chloride ER) 10 Meq Tab, 10 MEQ PO DAILY, TAB 07/29/19 Pantoprazole Sodium Sesquihydr (Protonix) 40 Mg Tab, 40 MG PO DAILY, #30 TAB 07/29/19 Meloxicam (Meloxicam) 15 Mg Tab, 1 TAB PO DAILY, #30 TAB 2 Refills 07/29/19 Ipratropium-Albuterol (Ipratropium [place]/Albut) 1 Yumiko Yumiko, 1 VIAL NEB Q6HP PRN for SHORTNESS OF BREATH, ML 07/29/19 Ondansetron HCl (Ondansetron Hydrochloride) 8 Mg Tab, 8 MG PO Q8HP PRN for NAUSEA / VOMITING, TAB 07/29/19 Insulin Glargine (Basaglar Kwikpen) 100 Unit/Ml Inj, 36 UNIT SC BID, INJ 07/29/19 Albuterol Sulfate (VENTOLIN MDI) 90 Mcg Ih, 2 PUFF IN Q4HP PRN for SHORTNESS OF BREATH, INH 04/21/19 Information Source: Patient Mode of Arrival: Ambulatory Location: Left Extremity Location: Knee Timing: Days Prehospital treatment: None Severity: Moderate Able to Move Extremity: Yes Bear Weight: Limited Pain: Moderate Mechanism: Spontaneous Circumstances: Spontaneous Onset of Symptoms: Spontaneous Symptoms: Swelling, Pain DVT Risk Factors: NONE Associated signs and symptoms: Knee pain Past Medical History PAST MEDICAL HISTORY: Anemia, Anxiety, Asthma, COPD, HTN, PUD, Seizures 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 Pertinent FOOD PREP WORKER History Family History Family History: Reviewed,noncontributory to illness Social History Smoker: Non-Smoker Alcohol: Occasionally Drugs: Marijuana Lives In: Home Constitutional: denies: chills, diaphoresis, fatigue, fever, malaise, sweats, weakness, others EENTM: denies: blurred vision, double vision, ear bleeding, ear discharge, ear drainage, ear pain, ear ringing, eye pain, eye redness, hearing loss, mouth pain, mouth swelling, nasal discharge, nose bleeding, nose congestion, nose charmaine n, photophobia, tearing, throat pain, throat swelling, voice changes, others Respiratory: denies: cough, hemoptysis, orthopnea, SOB at rest, shortness of breath, SOB with excertion, stridor, wheezing, others Cardiovascular: denies: chest pain, dizzy spells, diaphoresis, Dyspnea on exertion, edema, irregular heart beat, left arm pain, lightheadedness, palpitations, PND, syncope, others Gastrointestinal: denies: abdomen distended, abdominal pain, blood streaked bowels, constipated, diarrhea, dysphagia, difficulty swallowing, hematemesis, melena, nausea, poor appetite, poor fluid intake, rectal bleeding, rectal pain, vomiting, others Genitourinary: denies: abnormal vagina bleeding, burning, dyspareunia, dysuria, flank pain, frequency, hematuria, incontinence, pain, , vagina discharge, urgency, others Neurological: denies: dizziness, fainting, headache, left sided numbness, left sided weakness, numbness, paresthesia, pre-existing deficit, right sided numbness, right sided weakness, seizure, speech problems, tingling, tremors, weakness, others Musculoskeletal: reports: others (Lt knee pain); denies: back pain, gout, joint pain, joint swelling, muscle pain, muscle stiffness, neck pain Integumetry: denies: bruises, change in color, change in hair/nails, dryness, laceration, lesions, lumps, rash, wounds, others Allergic/Immunocompromised: denies: Difficulty Healing, Frequent Infections, Hives, Itching, others Hematologic/Lymphatic: denies: anemia, blood clots, easy bleeding, easy bruising, swollen glands, others Endocrine: denies: excessive hunger, excessive sweating, excessive thirst, excessive urination, flushing, intolerance to cold, intolerance to heat, unexplained weight gain, unexplained weight loss, others Psychiatric: denies: anxiety, bipolar disorder, depression, hopeless, panic disorder, schizophrenia, sleepless, suicidal, others All Other Systems: Reviewed and Negative Physical Exam General Appearance: No Apparent Distress, Normal HEENT: Normal ENT Inspection, Pharynx Normal, TMs Normal Neck: Full Range of Motion, Non-Tender, Normal, Normal Inspection Respiratory: Chest Non-Tender, Lungs Clear, No Accessory Muscle Use, No Resp iratory Distress, Normal Breath Sounds Cardiovascular: No Edema, No JVD, No Murmur, No Gallop, Normal Peripheral Pulses, Regular Rate/Rhythm Breast Exam: Deferred Gastrointestinal: No Organomegaly, Non Tender, No Pulsatile Mass, Normal Bowel Sounds, Soft Genitalia: Deferred Pelvic: Deferred Rectal: Deferred Extremities: No calf tenderness, Normal capillary refill, Normal inspection, Normal range of motion, Non-tender, No pedal edema Musculoskeletal : Location: Left Extremity Location: Knee (Mild swelling to left knee. No visible erythema. TTP to patella. Valgus/Stewart negative.) Apperance: Normal Neurologic: Alert, eyelet operator II-XII nml as Tested, No Motor Deficits, Normal Affect, Normal Mood, No Sensory Deficits Cerebellar Function: Normal Reflexes: Normal Skin: Dry, Normal Color, Warm Lymphatic: No Adenopathy Was a procedure done? Was a procedure done?: No Differential Diagnosis EXT Differential Diagnosis: Sprain, Gout, Contusion X-Ray, Labs, Meds, VS Vital Signs Date Time Temp Pulse Resp B/P (MAP) Pulse Ox O2 Delivery O2 Flow Rate FiO2 09/29/24 10:35 98.0 78 20 135/72 97 98.0 Lab Test 09/29/24 12:20 Range/Units White Blood Count 5.6 4.4-10.8 10^3/uL Red Blood Count 4.66 4.0-5.20 10^6/uL Hemoglobin 14.3 12.2-16.2 g/dL Hematocrit 41.6 36.0-46.0 % Mean Corpuscular Volume 89.1 80.0-100.0 fL Mean Corpuscular Hemoglobin 30.6 28.0-32.0 pg Mean Corpuscular Hemoglobin Concent 34.3 32.0-36.0 g/dL Red Cell Distribution Width 14.8 H 11.8-14.3 % Platelet Count 360 140-450 10^3/uL Mean Platelet Volume 6.8 L 6.9-10.8 fL Neutrophils (%) (Auto) 55.9 37.0-80.0 % Lymphocytes (%) (Auto) 36.4 10.0-50.0 % Monocytes (%) (Auto) 6.5 0.0-12.0 % Eosinophils (%) (Auto) 0.6 0.0-7.0 % Basophils (%) (Auto) 0.6 0.0-2.0 % Neutrophils # (Auto) 3.1 1.6-8.6 10 ^3/uL Lymphocytes # (Auto) 2.0 0.4-5.4 10 ^3/uL Monocytes # (Auto) 0.4 0-1.3 10 ^3/uL Eosinophils # (Auto) 0 0-0.8 10 ^3/uL Basophils # (Auto) 0 0-0.2 10 ^3/uL Nucleated Red Blood Cells 0.2 % Erythrocyte Sedimentation Rate 16 0-20 mm/hr Sodium Level 141 136-145 mmol/L Potassium Level 3.9 3.5-5.1 mmol/L Chloride Level 103 98-107 mmol/L Carbon Dioxide Level 29 20-31 mmol/L Anion Gap 9 5-15 Blood Urea Nitrogen 14 9-23 mg/dL Creatinine 0.90 0.550-1.02 mg/dL Glomerular Filtration Rate Calc 77 >90 mL/min BUN/Creatinine Ratio 15.6 10.0-20.0 Serum Glucose 86 74-106 mg/dL Uric Acid 6.7 3.1-7.8 mg/dL Calcium Level 9.3 8.7-10.4 mg/dL C-Reactive Protein High Sensitivity 0.40 <1.0 mg/dL Current Medications Medications (Trade) Dose Ordered Sig/Mirna Route Start Time Stop Time Status Last Admin Acetaminophen/ Hydrocodone Bitart ([place] 7.5/325MG Tab) 1 tab ONCE ONCE PO 09/29/24 11:45 09/29/24 11:46 DC 09/29/24 12:21 X-Ray, Labs, Meds, VS Comment This is a 53 year old female presenting to the ED with chief complaint of left knee pain. Patient arrives alert and oriented, ABC's intact, afebrile, vital signs stable, saturating well in room air Peripheral IV insertion+ labs were ordered. CBC was ordered to exclude anemia, blood loss, or infection. BMP was ordered to exclude electrolyte abnormalities, renal failure, dehydration, hyperglycemia Urinalysis was ordered to rule out UTI or hematuria. Uric Acid was ordered to rule out gout. ESRD was ordered. CRP was ordered to rule out inflammation. Diagnostic imaging ordered by me and results interpreted by radiology : Lt knee XR Labs in the ED showed (pertinent+ and then pertinent-) Patient was given: [place] 7.5/325mg PO. Tolerated medications with no adverse reaction. Additional MDM Review of External, Non-ED records: External records reviewed. Discussion with independent historian (EMS, family) history obtained from the patient/parents (if applicable) at bedside Chronic conditions affecting care: None Social determinants of health affecting care: None Consideration of admission (observation or admission): I considered escalation of care to admission for this patient, however given the reassuring workup, the patient is safe for outpatient management. Discussion with the Radiology: No Time of 1ST Reevaluation: 12:30 Reevaluation 1ST: Unchanged Patient Education/Counseling: Diagnosis, Treatment Family Education/Counseling: No Family Present Departure 1 Departure Time of Disposition: 13:58 Impression: Primary Impression: Enthesopathy of left knee region Additional Impression: Tricompartment osteoarthritis of knee Qualified Codes: M17.12 - Unilateral primary osteoarthritis, left knee Disposition: HOME / SELF CARE / HOMELESS Condition: Stable e-Prescriptions Hydrocodone-Acetaminophen (Hydrocodone Bitartrate/AC 5-325 mg) 1 Tab Tab 1 TAB PO Q8HP PRN for 3 Days, #9 TAB 0 Refills Prov: SUSAN PENALOZA NP 09/29/24 Prednisone (Prednisone) 20 Mg Tab 60 MG PO DAILY for 5 Days, #15 TAB 0 Refills Prov: SUSAN PENALOZA PYROTECHNIST 09/29/24 Critical Care Note Critical Care Time?: No Stability Stability form required: No Heart Score Heart Score: Heart Score Response (Comments) Value History N/A 0 EKG N/A 0 Age N/A 0 Risk Factors N/A 0 Troponin N/A 0 Total 0 I personally scribed for SUSAN PENALOZA NP ([email or web address]) on 09/29/24 at 12:16. Electronically submitted by Angel Martinez ([email or web address]). SUSAN PENALOZA NP Sep 29, 2024 12:16
[2024-09-29] MEDS: HYDROcodone-ACET 7.5/325MG TAB PO ONE (12:21)
--- NOTE | 2024-09-29 12:33 | DVH ---
Indication: atrauamtic knee pain Technique: XY L KNEE 3V XRAYXY Comparison: None FINDINGS/IMPRESSION: No radiographic evidence for acute fracture or dislocation. Moderate tricompartmental degenerative j oint disease. Moderate suprapatellar effusion. Enthesopathy at quadriceps insertion upon the rebel [place]
[2024-09-29 12:39] LABS: Hematocrit 41.6 % (36.0-46.0); Hemoglobin 14.3 g/dL (12.2-16.2); Mean Corpuscular Hemoglobin 30.6 pg (28.0-32.0); Mean Corpuscular Volume 89.1 fL (80.0-100.0); Nucleated Red Blood Cells % 0.2 %
[2024-09-29 12:47] LABS: Chloride 103 mmol/L (98-107); Potassium 3.9 mmol/L (3.5-5.1); Sodium 141 mmol/L (136-145)
[2024-09-29 12:48] LABS: Anion Gap 9 (5-15); Carbon Dioxide 29 mmol/L (20-31)
[2024-09-29 12:49] LABS: Calcium 9.3 mg/dL (8.7-10.4)
[2024-09-29 12:53] LABS: BUN/Creatinine Ratio 15.6 (10.0-20.0); Blood Urea Nitrogen 14 mg/dL (9-23); Glucose 86 mg/dL (74-106)
[2024-09-29 13:05] LABS: Uric Acid 6.7 mg/dL (3.1-7.8)
[2024-09-29] MEDS ORDERED: HYDR-4902 PO (14:00)
[2024-09-29] MEDS ORDERED: PRED20TA2 PO (14:00)
[2024-09-29 14:15] VITALS: BP 142/87; PULSE 87; RESP 17; TEMP 98.7; O2SAT 97
== END 2024-09-29 14:19 | disposition home or self-care (01) ==
LOC: ER 10:34
DX: M76.892 Other specified enthesopathies of left lower limb, excluding foot (principal); M17.12 Unilateral primary osteoarthritis, left knee; J44.89 Other specified chronic obstructive pulmonary disease; F41.9 Anxiety disorder, unspecified; I10 Essential (primary) hypertension; Z88.2 Allergy status to sulfonamides; Z88.0 Allergy status to penicillin; Z79.899 Other long term (current) drug therapy; Z86.2 Personal history of diseases of the blood and blood-forming organs and certain disorders involving the immune mechanism
CPT/HCPCS: 36415; 73562; 80048; 84550; 85025; 85652; 86141